=== PATIENT | female | born 1960 | race Caucasian/White ===

== ENCOUNTER 2016-08-26 10:11 | Inpatient (IN) | payer MEDICARE ==
[2016-08-26] MEDS ORDERED: MAG HYDROX/AL HYDROX/SIMETH 30 ML CUP PO PRN (13:19)
[2016-08-26] MEDS ORDERED: ZIPRASIDONE 20 MG VIAL IM PRN (13:19)
[2016-08-26 13:34] VITALS: BMI 24.9
[2016-08-26] MEDS ORDERED: LORazepam 2 MG/ML SYRINGE IM PRN (14:02)
--- NOTE | 2016-08-26 16:19 | P.CONS ---
History of Present Illness - Reason for Consult Consult date: 08/26/16 Medical management - History of Present Illness This is a 56-year-old female. She does not have a primary care physician. She has a past medical history of hypothyroidism, hyperlipidemia, gastroesophageal reflux disease, morbid obesity status post gastric bypass with possible 154 pounds, anal cancer, tobacco use and dependence, crack and alcohol use, bipolar disorder and anxiety. Patient states that she has been following with Dr. Hedrick for 10 years and she has had increasing problems with alcohol abuse and crack use. She states she was clean for 8 years but has been using for the past 6 months. She states she starts drinking alcohol straight vodka until she is "annihilated" and this triggers her drug use and she uses crack cocaine. This usually happens 1-2 times per week. She states she hadn't a plan with Dr. Hedrick to come into [facility] unit for help but she ended up starting to drink and using drugs and ended up attempting suicide by taking 30 Seroquel. Her father came to the home to pick her up in the morning to take her to [facility] mental health unit as scheduled but found her unresponsive and ended up calling 911 and patient was taken to a nearby hospital where she was stabilized and then directly transferred to the mental health unit. Review of Systems All systems: negative Constitutional: Denies chills, Denies fever Eyes: denies blurred vision, denies pain Ears, nose, mouth and throat: Denies headache, Denies sore throat Cardiovascular: Denies chest pain, Denies shortness of breath Respiratory: Denies cough Gastrointestinal: Denies abdominal pain, Denies diarrhea, Denies nausea, Denies vomiting Genitourinary: Denies dysuria, Denies hematuria Musculoskeletal: Denies myalgias Integumentary: Denies pruritus, Denies rash Neurological: Denies numbness, Denies weakness Psychiatric: Reports depression, Reports hopelessness, Reports suicidal ideation , Denies anxiety Endocrine: Denies fatigue, Denies weight change Past Medical History Past Medical History: Cancer, GERD/Reflux, Hyperlipidemia, Thyroid Disorder Additional Past Medical History / Comment(s): Anal CA, GI bypass 2014 with weight loss of 154 pounds History of Any Multi-Drug Resistant Organisms: None Reported Additional Past Surgical History / Comment(s): Gastric bypass in 2015, anal cancer surgery, hysterectomy Past Anesthesia/Blood Transfusion Reactions: No Reported Reaction Past Psychological History: Anxiety, Bipolar Smoking Status: Current every day smoker Past Alcohol Use History: Abuse Additional Past Alcohol Use History / Comment(s): Patient is a smoker of half a pack per day for 40 years. She drinks alcohol 1-2 times per week until drunk. She also uses crack cocaine 1-2 times per week for the past 6 months and previously was clean for 8 years. She does not have any children. Past Drug Use History: Cocaine - Past Family History Father Additional Family Medical History / Comment(s): Father is alive at age 83 with no major medical problems. Mother Additional Family Medical History / Comment(s): Mother at age 80 from brain cancer. Brother(s) Additional Family Medical History / Comment(s): Patient has 3 siblings. One brother from Hailey Gehrig's disease and to her life with no major medical problems. Medications and Allergies Home Medications Medication Instructions Recorded Confirmed Type Atorvastatin Calcium [Lipitor] 10 mg PO HS 08/26/16 08/26/16 History Divalproex ER [Depakote ER] 1,500 mg PO HS 08/26/16 08/26/16 History Levothyroxine Sodium [Synthroid] 50 mcg PO DAILY 08/26/16 08/26/16 History Omeprazole 20 mg PO DAILY 08/26/16 08/26/16 History QUEtiapine [SEROquel] 50 mg PO HS 08/26/16 08/26/16 History Venlafaxine HCl ER [Effexor Xr] 37.5 mg PO QAM 08/26/16 08/26/16 History Venlafaxine HCl ER [Effexor Xr] 75 mg PO QAM 08/26/16 08/26/16 History lamoTRIgine [LaMICtal] 25 mg PO BID 08/26/16 08/26/16 History Allergies Allergy/AdvReac Type Severity Reaction Status Date / Time No Known Allergies Allergy Unverified 08/26/16 12:40 Physical Exam Vitals: Vital Signs Temp Pulse Resp BP 08/26/16 13:24 97.7 F 67 16 110/74 Intake and Output 08/26/16 08/26/16 08/26/16 06:59 14:59 22:59 Other: Weight 74.38 kg Patient Weight 08/27/16 06:59 Weight 74.38 kg Gen: This is a 56 rolled female. She is cooperative and appears to be in no acute distress. HEENT: Head is atraumatic, normocephalic. Pupils equal, round. Sclerae is anicteric. NECK: Supple. No JVD. No lymphadenopathy. No thyromegaly. LUNGS: Clear to auscultation. No wheezes or rhonchi. No intercostal retractions. HEART: Regular rate and rhythm. No murmur. ABDOMEN: Soft. Bowel sounds are present. No masses. No tenderness. EXTREMITIES: No pedal edema. No calf tenderness. NEUROLOGICAL: Patient is awake, alert and oriented x3. Cranial nerves 2 through 12 are grossly intact. Assessment and Plan Plan: 1. Depression with suicide attempt. Patient admitted to the mental health unit. Continue current plan of care. 2. Tobacco use and dependence. Continue nicotine patch. 3. Crack and alcohol abuse. Continue as in #1. 4. Hypothyroidism. Continue Synthroid. 5. Gastroesophageal reflux disease. Continue omeprazole or equivalent. 6. Hyperlipidemia. Continue Lipitor. 7. History of morbid obesity status post gastric bypass with loss 154 pounds. 8. Anal cancer, patient to continue follow-up as previously determined. Impression and plan of care have been directed as dictated by the signing physician. Kathia Lyons nurse practitioner acting as scribe for signing physician. Time with Patient: Greater than 30
[2016-08-26] MEDS: NICOTINE 14MG/24HR PATCH TRANSDERM SCH (16:43)
[2016-08-26] MEDS: ATORVASTATIN 10 MG TAB PO SCH (20:56)
[2016-08-26] MEDS: QUEtiapine 50 MG TAB PO SCH (20:56)
[2016-08-26] MEDS: lamoTRIgine 25 MG TAB PO SCH (20:56)
[2016-08-26] MEDS: DIVALPROEX ER 500 MG TAB.ER.24H PO SCH (20:56)
[2016-08-27] MEDS: LEVOTHYROXINE 50 MCG TAB PO SCH (05:58)
[2016-08-27] MEDS: NICOTINE 14MG/24HR PATCH TRANSDERM SCH (09:34)
[2016-08-27] MEDS: VENLAFAXINE HCL ER 37.5 MG CAP PO SCH (09:34)
[2016-08-27] MEDS: lamoTRIgine 25 MG TAB PO SCH ×2 (09:35→20:26)
[2016-08-27] MEDS: PANTOPRAZOLE 40 MG TABLET PO SCH (09:35)
[2016-08-27] MEDS: VENLAFAXINE HCL ER 75 MG CAP PO SCH (09:35)
[2016-08-27] MEDS: MAGNESIUM HYDROXIDE 2,400 MG/10 ML CUP PO PRN (09:39)
--- NOTE | 2016-08-27 17:28 | P.HP ---
Psychiatric H&P - . H&P Date: 08/27/16 History & Physical: IDENTIFYING DATA: Ms. Gar is a 56-year-old female transferred from [facility] where she was treated for intentional overdose.. HISTORY OF PRESENT ILLNESS: She presented to [facility] on 08/23/2016 after overdosing on 500 mg of Seroquel, alcohol and cocaine on the evening of the . She described becoming more and more depressed, hopeless, helpless and worthless since she relapsed to alcohol cocaine "6-9 months ago". She was scheduled to be admitted to this unit on 08/23/2016. Her father arrived at her home that morning to take her to the hospital. He found her lying across her bed , groggy with a suicide note and empty pill bottles next her bed. The suicide note read "Sara cervantes Chris: My time is up - going to be with mom. Love you all very much but my time here is up!" She was drowsy on presentation to the ER but able to maintain her airway. [facility] overdose and transferred involuntarily to this facility when medically stable. She stated that given the opportunity she will attempt to kill herself again. She is disappointed with herself and feels as though she is disappointed her family and friends. She sees no hope for herself and no reason to keep living. Several times interview she stated that she "just wants to ." She is disappointed with herself for having relapsed to alcohol and cocaine. "I am a very intelligent woman .... I worked in [employer] making over $100,000 a year. 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 ... Look at me now." She described persistent feelings of hopelessness and helplessness. On the Barroso Depression Inventory her total score was 38 consistent with severe symptoms of depression. She describes sadness, pessimism, loss of pleasure, guilty feelings, punishment feelings, self dislike, self criticalness, suicidal thoughts or wishes, crying, agitation, loss of interest, indecisiveness, worthlessness, loss of energy, irritability, changes in appetite (my appetite is somewhat less than usual), concentration difficulty, tiredness or fatigue and loss of interest in sex. On the "Suicidal Thoughts or Wishes" question she selected the option "I would kill myself if I had chance." We talked about her alcohol and cocaine use. She stated she was abstinent for "several years". She believes relapse began when she started to have a "drink of wine now and then." She described a pattern where she would drink vodka once or twice per week. She will usually drink 1 glass of vodka and seek out crack cocaine. She would smoke cocaine for the day and sometimes into the following morning. After the binge she would feel remorseful, worthlessness and disappointed. The pattern continued over several months and she began to have increasing feeling of worthless and more persistent thoughts of suicide. PAST PSYCHIATRIC HISTORY: She has a history of a bipolar 2 disorder, alcohol use disorder and cocaine use disorder. He is had several psychiatric hospitalization; the last was in 2009 to this unit when she presented with delirium due to overdose of prescription psychotropic medications. Her dischare diagnoses include bipolar 1 disorder most recent manic with psychosis, delirium resolve most likely secondary to unintentional medication misuse. Her discharge medications included Abilify 10 mg daily lithium carbonate 600 mg in the morning and 10 mg at bedtime and Ambien 10 mg at bedtime. She received outpatient mental health treatment through [facility] outpatient mental health services; Dr. Hedrick was her psychiatrist. She last met with Dr. Hedrick in May 2016. PAST MEDICAL HISTORY: She has history of anal cancer, GERD, hyperlipidemia and thyroid disease. She had with GI bypass in 2014 with a report of a thought weight loss of 154 pounds.. ALLERGIES: NO KNOWN DRUG ALLERGIES SUBSTANCE USE HISTORY: She has history of alcohol and cocaine use disorders. She was abstinent "for several years" prior to this relapse. She attributed her abstinence to attendance to Alcoholics Anonymous and her ongoing mental health treatment. She has not participated in rehabilitation program. She is currently not attending Alcoholics Anonymous or Narcotics Anonymous. FAMILY PSYCHIATRIC/SUBSTANCE USE HISTORY: She alleged that most her family had a history of substance use problems. LEGAL HISTORY: She denied history of legal problems. SOCIAL HISTORY: She is and has no children. She lives alone in her own home. 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 She took medical leave from work in 2005 and forced into medical assisted in 2009. She is currently unemployed and receives social screening disability in addition to her pension. MENTAL STATUS EXAM: She presented as a disheveled appearing 56-year-old female who was emotionally labile and tearful during the interview. She maintained eye contact and attended to interview. She had no distinguishing features or prominent physical abnormalities. She had emotionally labile facial expression and cried intermittently during interview. She was alert and oriented to person, place and time. She was restless but did not have abnormal involuntary movements. Her speech was rapid with normal volume. She did not demonstrate pressured speech. There is no articulation difficulties. Her affect was depressed, anxious and intense. She described suicidal ideations and wishes. She denied a specific plan or intent but repeated that given the opportunity she will attempt suicide again. She expressed depressive cognitions including hopelessness, helplessness and worthlessness. She ruminated about past failures, her relapse to substance use , her disappointments, her depression and suicidal thoughts. She did not express phobias, ideas reference or paranoid ideation. Her thinking was abstract and associations were coherent and logical. She did not demonstrate clang associations, perseverations, neologisms or blocking. She denied hallucinations and did not appear to be responding to internal stimuli. Global impression of intellect is average to above. She is aware of her illness and need for mental health treatment. STRENGTHS: Stable housing, stable income, family support WEAKNESSES: alcohol and cocaine use disorder, lack of engagement in substance abuse recovery, no recent outpatient mental health treatment. IMPRESSION: She is a 56-year-old female transferred from [facility] following an intentional overdose with prescription medication, alcohol and cocaine. She described worsening depression and suicidal ideation since her relapse to alcohol and cocaine. She described ongoing suicidal thoughts and repeatedly stated that given the opportunity she would attempt suicide again. However, she denied a specific plan. She should be treated on an inpatient basis with a combination of sick pharmacology and multimodal therapy. PRINCIPLE DIAGNOSIS: Bipolar disorder most recent episode depressed without psychotic features, alcohol use disorder, cocaine use disorder, status post suicide attempt by overdose of alcohol and prescription medications RECOMMENDATION: Continue inpatient psychiatric hospitalization due to continued depression and suicidal ideation. Suicide precautions with 15 minute checks. If she displays increased agitation or parasuicidal behavio, place her on one-to -one. Continue outpatient medications including Depakote ER 1500 mg at bedtime , Lamictal 25 mg twice a day, Synthroid 50 g daily, Seroquel 50 mg at bedtime and Effexor XR 112.5 mg daily. Monitor alcohol withdrawal using the CIWA protocol. Lorazepam 1 mg by mouth/IM every 8 hours when necessary for anxiety and/or alcohol withdrawal. Geodon 20 mg IM by mouth twice a day when necessary for agitation acute psychosis. Continue Lipitor 10 mg at bedtime. research worker encyclopedia obtained collateral information from family. Encourage participation in therapeutic groups and activities. Evaluate clinical status and response to treatment on a daily basis. Allergies Allergy/AdvReac Type Severity Reaction Status Date / Time No Known Allergies Allergy Unverified 08/26/16 12:40 Vital Signs Temp 97.9 F 08/27/16 06:45 Pulse 55 L 08/27/16 06:45 Resp 16 08/27/16 06:45 BP 125/59 08/27/16 06:45 Pulse Ox Intake & Output 08/26/16 08/27/16 08/27/16 18:59 06:59 18:59 Weight 74.38 kg 08/27/16 09:07 08/27/16 17:21
[2016-08-27] MEDS: ACETAMINOPHEN TAB 325 MG TAB PO PRN (17:56)
[2016-08-27] MEDS: DIVALPROEX ER 500 MG TAB.ER.24H PO SCH (20:26)
[2016-08-27] MEDS: QUEtiapine 50 MG TAB PO SCH (20:27)
[2016-08-27] MEDS: ATORVASTATIN 10 MG TAB PO SCH (21:24)
[2016-08-28] MEDS: LEVOTHYROXINE 50 MCG TAB PO SCH (06:28)
[2016-08-28] MEDS: PANTOPRAZOLE 40 MG TABLET PO SCH (09:26)
[2016-08-28] MEDS: VENLAFAXINE HCL ER 37.5 MG CAP PO SCH (09:26)
[2016-08-28] MEDS: VENLAFAXINE HCL ER 75 MG CAP PO SCH (09:26)
[2016-08-28] MEDS: lamoTRIgine 25 MG TAB PO SCH ×2 (09:27→21:55)
[2016-08-28] MEDS: NICOTINE 14MG/24HR PATCH TRANSDERM SCH (09:28)
[2016-08-28] MEDS: ACETAMINOPHEN TAB 325 MG TAB PO PRN ×2 (14:55→21:55)
--- NOTE | 2016-08-28 14:58 | P.PN ---
Progress Note - Text SUBJECTIVE: I reviewed the medical record and interviewed Ms. Gar. She reported that she is feeling better than yesterday; "I am less desperate." She continues have thoughts of suicide but denied intent and plan. She remains fearful of discharge and believes that if she were to be discharged would attempt suicide again. She talked about falling prior to admission and hitting her head. Since the fall she is complained of headaches. She has a contusion above her left eye. OBJECTIVE: She presented as a casually groomed 56-year-old woman who was pleasant on approach. She made eye contact and attended to the interview. She had a blunted but bright facial expression. She showed slight increased psychomotor activity but no abnormal involuntary movements. Her speech was spontaneous with increased rate but normal rhythm and volume. Her affect was dysphoric. She cried continued suicidal ideation and wishes. She has depressive cognitions such as hopelessness, helplessness and worthlessness. She denied ideas of reference or paranoid ideation. Her thinking was abstract and associations are coherent and logical. She denied hallucinations and did not appear to be responding to internal stimuli. CIWA scores have range from 0-11 over the last 24 hours ASSESSMENT: Fall prior to admission with persistent headaches. She is having minimal symptoms of alcohol withdrawal. Continue symptoms depression and suicidal ideation without intent or plan. PLAN: Continue inpatient psychiatric hospitalization due to depression and suicidal ideation. Continue suicide precautions with 15 minute checks. Continue Depakote 150 0mg at bedtime, Lamictal 25 mg twice a day, Synthroid 50 g daily, Seroquel 50 mg at bedtime and Effexor 112.5 mg daily. Discontinue CIWA. Continue lorazepam 1 mg by mouth/IM every 8 hours when necessary for anxiety or acute agitation. Geodon 20 mg IM by mouth twice a day when necessary for agitation or acute psychosis. Continue Lipitor 10 mg at bedtime. Obtain computed tomography scan of the head. Encourage participation in therapeutic groups and activities. Evaluate clinical status response to treatment daily basis.
--- NOTE | 2016-08-28 15:40 | CT ---
EXAMINATION TYPE: CT brain wo con DATE OF EXAM: 08/28/2016 3:19 PM COMPARISON: NONE HISTORY: dizziness, blurred vision, fall CT DLP: 1072.3 mGycm Automated exposure control for dose reduction was used. FINDINGS: Ventricles and sulci appear normal. There is no mass effect nor midline shift. There is no sign of in tracranial hemorrhage. The calvarium appears intact. There is left frontal scalp soft tissue swelling . There is mucosal thickening with fluid level in the left maxillary sinus. There is mild mucosal thick ening in the sphenoid and right maxillary sinus. IMPRESSION: Left frontal small scalp hematoma. No acute intracranial abnormality. Mild sinusitis. No fracture see n.
[2016-08-28] MEDS: DIVALPROEX ER 500 MG TAB.ER.24H PO SCH (21:55)
[2016-08-28] MEDS: ATORVASTATIN 10 MG TAB PO SCH (21:55)
[2016-08-28] MEDS: QUEtiapine 50 MG TAB PO SCH (21:55)
[2016-08-29] MEDS: LEVOTHYROXINE 50 MCG TAB PO SCH (05:53)
[2016-08-29] MEDS: lamoTRIgine 25 MG TAB PO SCH ×2 (09:36→21:10)
[2016-08-29] MEDS: VENLAFAXINE HCL ER 37.5 MG CAP PO SCH (09:36)
[2016-08-29] MEDS: PANTOPRAZOLE 40 MG TABLET PO SCH (09:36)
[2016-08-29] MEDS: NICOTINE 14MG/24HR PATCH TRANSDERM SCH (09:36)
[2016-08-29] MEDS: VENLAFAXINE HCL ER 75 MG CAP PO SCH (09:37)
[2016-08-29] MEDS: MAGNESIUM HYDROXIDE 2,400 MG/10 ML CUP PO PRN (12:11)
[2016-08-29] MEDS ORDERED: OLANZapine 2.5 MG TAB PO STA (13:51)
--- NOTE | 2016-08-29 14:23 | P.PN ---
Progress Note - Text SUBJECTIVE: I reviewed the medical record, discussed her treatment and treatment plan during team meeting and interviewed Ms. Gar. She complained of feeling manic. He stated that she has restless, edgy and feels more irritable. "I'm talking a mile a minute." She requested something "temporary" . This level of her agitation and irritability. We discussed treatment options. She declined a change in dose of her current medications including Effexor (I recommended to decrease the dose temporarily), Depakote, Lamictal and Seroquel. She agreed to a trial of olanzapine 2.5 mg. I explained the results of the computed tomography scan of brain. OBJECTIVE: She presented as a casually groomed 56-year-old woman who was pleasant on approach. She made eye contact and attended to the interview. She had a bright facial expression. She had a hand tremor and increased psychomotor activity but no abnormal involuntary movements. Her speech was spontaneous with increased rate but normal rhythm and volume. Her affect was dysphoric. She denied suicidal ideation and wishes. She did not expressed depressive cognitions such as hopelessness, helplessness and worthlessness. She denied ideas of reference or paranoid ideation. Her thinking was abstract and associations are coherent and logical. She denied hallucinations and did not appear to be responding to internal stimuli. CIWA scores have range from 1-11 over the last 24 hours Computed tomography scan of the brain shows only a contusion on the forehead. ASSESSMENT: She is having minimal symptoms of alcohol withdrawal. She is describing signs and symptoms of hypomania PLAN: Continue suicide precautions with 15 minute checks. Continue Depakote 150 0mg at bedtime, Lamictal 25 mg twice a day, Synthroid 50 g daily, Seroquel 50 mg at bedtime and Effexor 112.5 mg daily. Zyprexa 2.5 mg by mouth for hypomania. Check serum valproic acid level. If hypomanic symptoms persist taper Effexor. Continue lorazepam 1 mg by mouth/IM every 8 hours when necessary for anxiety or acute agitation. Geodon 20 mg IM by mouth twice a day when necessary for agitation or acute psychosis. Continue Lipitor 10 mg at bedtime. Obtain computed tomography scan of the head. Encourage participation in therapeutic groups and activities. Evaluate clinical status response to treatment daily basis.
[2016-08-29] MEDS: DIVALPROEX ER 500 MG TAB.ER.24H PO SCH (21:10)
[2016-08-29] MEDS: ATORVASTATIN 10 MG TAB PO SCH (21:10)
[2016-08-29] MEDS: QUEtiapine 50 MG TAB PO SCH (21:11)
[2016-08-30] MEDS: ACETAMINOPHEN TAB 325 MG TAB PO PRN (02:42)
[2016-08-30] MEDS: LEVOTHYROXINE 50 MCG TAB PO SCH (05:46)
[2016-08-30] MEDS: NICOTINE 14MG/24HR PATCH TRANSDERM SCH (09:45)
[2016-08-30] MEDS: VENLAFAXINE HCL ER 75 MG CAP PO SCH (09:46)
[2016-08-30] MEDS: VENLAFAXINE HCL ER 37.5 MG CAP PO SCH (09:46)
[2016-08-30] MEDS: lamoTRIgine 25 MG TAB PO SCH ×2 (09:46→21:14)
[2016-08-30] MEDS: MAGNESIUM HYDROXIDE 2,400 MG/10 ML CUP PO PRN (09:47)
[2016-08-30] MEDS: PANTOPRAZOLE 40 MG TABLET PO SCH (09:47)
[2016-08-30] MEDS: IBUPROFEN 400 MG TAB PO PRN ×2 (12:50→21:14)
[2016-08-30] MEDS: BENZOCAIN/BENZALKONM ORAL GEL 12 GM TUBE MM PRN ×2 (13:05→21:18)
--- NOTE | 2016-08-30 14:03 | P.PN ---
Progress Note - Text SUBJECTIVE: I reviewed the medical record, discussed her treatment and treatment plan during team meeting and interviewed Ms. Gar. She stated that she feels "less manic" today since she took the single dose of olanzapine. She complained about "family problems". Apparently her family are wishing her enter a substance rehabilitation program. 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 She asked for my opinion and I recommended residential rehabilitation. She again declined my recommendation to decrease the dose of venlafaxine. OBJECTIVE: She presented as a casually groomed 56-year-old woman who was pleasant on approach. She made eye contact and attended to the interview. She had a bright facial expression. She had no abnormality of psychomotor activity but no abnormal involuntary movements. Her speech was spontaneous with increased rate but normal rhythm and volume. She did not demonstrate flight of ideas or pressured speech. Her affect was blunted but bright. She denied suicidal ideation and wishes. She did not expressed depressive cognitions such as hopelessness, helplessness and worthlessness. She denied ideas of reference or paranoid ideation. Her thinking was abstract and associations are coherent and logical. She denied hallucinations and did not appear to be responding to internal stimuli. Her serum valproic acid level was 75.5 ASSESSMENT: She has no signs or symptoms of alcohol withdrawal. She is less agitated and restless to yesterday. PLAN: Continue suicide precautions with 15 minute checks. Continue Depakote 150 0mg at bedtime, Lamictal 25 mg twice a day, Synthroid 50 g daily, Seroquel 50 mg at bedtime and Effexor 112.5 mg daily. Zyprexa 2.5 mg by mouth for hypomania. Continue lorazepam 1 mg by mouth/IM every 8 hours when necessary for anxiety or acute agitation. Geodon 20 mg IM by mouth twice a day when necessary for agitation or acute psychosis. Continue Lipitor 10 mg at bedtime. Encourage admission to a residential substance abuse treatment program. Encourage participation in therapeutic groups and activities. Evaluate clinical status response to treatment daily basis.
[2016-08-30] MEDS: ATORVASTATIN 10 MG TAB PO SCH (21:13)
[2016-08-30] MEDS: DIVALPROEX ER 500 MG TAB.ER.24H PO SCH (21:13)
[2016-08-30] MEDS: QUEtiapine 50 MG TAB PO SCH (21:14)
[2016-08-31] MEDS: LEVOTHYROXINE 50 MCG TAB PO SCH (06:40)
[2016-08-31] MEDS: VENLAFAXINE HCL ER 75 MG CAP PO SCH (10:23)
[2016-08-31] MEDS: lamoTRIgine 25 MG TAB PO SCH ×2 (10:24→20:58)
[2016-08-31] MEDS: PANTOPRAZOLE 40 MG TABLET PO SCH (10:24)
[2016-08-31] MEDS: NICOTINE 14MG/24HR PATCH TRANSDERM SCH (10:24)
[2016-08-31] MEDS: VENLAFAXINE HCL ER 37.5 MG CAP PO SCH (10:24)
[2016-08-31] MEDS: IBUPROFEN 400 MG TAB PO PRN (11:33)
[2016-08-31] MEDS: BENZOCAIN/BENZALKONM ORAL GEL 12 GM TUBE MM PRN ×2 (11:33→16:15)
[2016-08-31] MEDS: MAGNESIUM HYDROXIDE 2,400 MG/10 ML CUP PO PRN (12:28)
--- NOTE | 2016-08-31 15:45 | P.PN ---
Progress Note - Text SUBJECTIVE: I reviewed the medical record, discussed her treatment and treatment plan during team meeting and interviewed Ms. Gar. She reports that he is feeling better except for her toothache. "I'm starting to feel more hopeful." She denied current suicidal thoughts or wishes. She denied feeling depressed, restless, anxious or irritable. She remains ambivalent about residential substance abuse treatment. She is compiling a list of "pros and cons" and wishes to suspended judgment until she speaks with social organization professor, her outpatient psychiatrist and her sister. She emphasized that she wished to remain in the hospital until she could talk with her outpatient psychiatrist. OBJECTIVE: She presented as a casually groomed 56-year-old woman who was pleasant on approach. She made eye contact and attended to the interview. She had a blunted facial expression. She had no abnormality of psychomotor activity and no abnormal involuntary movements. Her speech was spontaneous with increased rate but normal rhythm and volume. She did not demonstrate flight of ideas or pressured speech. Her affect was blunted but bright. She denied suicidal ideation and wishes. She did not expressed depressive cognitions such as hopelessness, helplessness and worthlessness. She denied ideas of reference or paranoid ideation. Her thinking was abstract and associations are coherent and logical. She denied hallucinations and did not appear to be responding to internal stimuli. ASSESSMENT: She has a history of cocaine and alcohol use disorder and is ambivalent about substance abuse rehabilitation. She has minimal symptoms of depression and demonstrates no signs of katja or hypomania. PLAN: Continue suicide precautions with 15 minute checks. Continue Depakote 150 0mg at bedtime, Lamictal 25 mg twice a day, Synthroid 50 g daily, Seroquel 50 mg at bedtime and Effexor 112.5 mg daily. Zyprexa 2.5 mg by mouth for hypomania. Continue lorazepam 1 mg by mouth/IM every 8 hours when necessary for anxiety or acute agitation. Geodon 20 mg IM by mouth twice a day when necessary for agitation or acute psychosis. Continue Lipitor 10 mg at bedtime. Encourage admission to a residential substance abuse treatment program. Encourage participation in therapeutic groups and activities. Evaluate clinical status response to treatment daily basis.
[2016-08-31] MEDS: QUEtiapine 50 MG TAB PO SCH (20:58)
[2016-08-31] MEDS: DIVALPROEX ER 500 MG TAB.ER.24H PO SCH (20:58)
[2016-08-31] MEDS: ATORVASTATIN 10 MG TAB PO SCH (20:58)
[2016-09-01] MEDS: LEVOTHYROXINE 50 MCG TAB PO SCH (05:59)
[2016-09-01] MEDS: IBUPROFEN 400 MG TAB PO PRN ×2 (06:01→15:54)
[2016-09-01] MEDS: MAGNESIUM HYDROXIDE 2,400 MG/10 ML CUP PO PRN (09:00)
[2016-09-01] MEDS: VENLAFAXINE HCL ER 75 MG CAP PO SCH (09:00)
[2016-09-01] MEDS: NICOTINE 14MG/24HR PATCH TRANSDERM SCH (09:00)
[2016-09-01] MEDS: lamoTRIgine 25 MG TAB PO SCH ×2 (09:00→21:23)
[2016-09-01] MEDS: PANTOPRAZOLE 40 MG TABLET PO SCH (09:00)
[2016-09-01] MEDS: VENLAFAXINE HCL ER 37.5 MG CAP PO SCH (09:04)
--- NOTE | 2016-09-01 14:46 | P.PN ---
Progress Note - Text SUBJECTIVE: I reviewed the medical record, discussed her treatment and treatment plan during team meeting and interviewed Ms. Gar. She stated that she is "feeling well." She denied current suicidal thoughts or wishes. She denied feeling depressed, restless, anxious or irritable. She decided against residential rehabilitation. She developed a list of "pros and cons" and concluded that the "cons" outweighed the "pros". 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 She believes that reengage in with Alcoholics Anonymous and starting individual therapy along with psychiatric care would be adequate to address her alcohol and cocaine use problems. She notes that her plan is to remain in the hospital until Monday when she could talk with Dr. Hedrick. She has "much to talk about" and will need to remain in the hospital until next Monday to cover all the topic she wishes to discuss. I explained that the alteration of her hospitalization will depend on authorization by her insurance company. She understands that she may not be authorized for continued stay showed the weekend and into next week. She does not have a follow-up appointment with Dr. Hedrick. She remains opposed to any change in her psychotropic medication schedule. OBJECTIVE: She presented as a casually groomed 56-year-old woman who was pleasant on approach. She made eye contact and attended to the interview. She had a blunted facial expression. She had no abnormality of psychomotor activity and no abnormal involuntary movements. Her speech was spontaneous with increased rate but normal rhythm and volume. She did not demonstrate flight of ideas or pressured speech. Her affect was blunted but bright. She denied suicidal ideation and wishes. She did not expressed depressive cognitions such as hopelessness, helplessness and worthlessness. She denied ideas of reference or paranoid ideation. Her thinking was abstract and associations are coherent and logical. She denied hallucinations and did not appear to be responding to internal stimuli. ASSESSMENT: She does not understand the severity of her drug alcohol use and the need for outpatient treatment. She appears slightly hypomanic but is no evidence of psychosis or thoughts of self-harm. PLAN: Continue suicide precautions with 15 minute checks. Continue Depakote 150 0mg at bedtime, Lamictal 25 mg twice a day, Synthroid 50 g daily, Seroquel 50 mg at bedtime and Effexor 112.5 mg daily. Zyprexa 2.5 mg by mouth for hypomania. Continue lorazepam 1 mg by mouth/IM every 8 hours when necessary for anxiety or acute agitation. Geodon 20 mg IM by mouth twice a day when necessary for agitation or acute psychosis. Continue Lipitor 10 mg at bedtime. Continue to encourage a residential substance abuse treatment program. Encourage participation in therapeutic groups and activities. Evaluate clinical status response to treatment daily basis.
[2016-09-01] MEDS: ATORVASTATIN 10 MG TAB PO SCH (21:23)
[2016-09-01] MEDS: QUEtiapine 50 MG TAB PO SCH (21:23)
[2016-09-01] MEDS: DIVALPROEX ER 500 MG TAB.ER.24H PO SCH (21:23)
[2016-09-02] MEDS: LEVOTHYROXINE 50 MCG TAB PO SCH (06:00)
[2016-09-02] MEDS: lamoTRIgine 25 MG TAB PO SCH ×2 (09:28→21:16)
[2016-09-02] MEDS: NICOTINE 14MG/24HR PATCH TRANSDERM SCH (09:28)
[2016-09-02] MEDS: VENLAFAXINE HCL ER 37.5 MG CAP PO SCH (09:28)
[2016-09-02] MEDS: VENLAFAXINE HCL ER 75 MG CAP PO SCH (09:28)
[2016-09-02] MEDS: IBUPROFEN 400 MG TAB PO PRN ×2 (09:28→21:38)
[2016-09-02] MEDS: PANTOPRAZOLE 40 MG TABLET PO SCH (09:28)
[2016-09-02] MEDS: BENZOCAIN/BENZALKONM ORAL GEL 12 GM TUBE MM PRN (09:30)
[2016-09-02] MEDS: LORazepam 1 MG TAB PO PRN (14:55)
--- NOTE | 2016-09-02 16:02 | P.PN ---
Progress Note - Text SUBJECTIVE: I reviewed the medical record, discussed her treatment and treatment plan during team meeting and interviewed Ms. Gar. She stated that she is "safe" then ready to discharged. However during a conversation she began to cry uncontrollably. She talked about a family meeting where her sister allegedly told her that she "wants nothing to do with me. She is tired of my lying and my constant drug and alcohol use." She alleged her only support is her brother who is currently in [place]. Her family does not trust her with her prescription medications. Her father removed all the medications from her home concerned about an overdose. She asked for a 3 day supply of medications until she can meet with her outpatient psychiatrist next week. She indirectly asked if it were possible to overdose on her medications if he were to use alcohol and cocaine: "My sister wanted no active I could overdose with a 3 day supply my medications and drank alcohol use cocaine. " I spoke with the nursing home social worker about the family meeting. The nursing home social worker stated that the sister was very brusque almost rude and critical of Mrs. Gar. OBJECTIVE: She presented as a casually groomed 56-year-old woman who was pleasant on approach. She made eye contact and attended to the interview. She had a blunted facial expression. She cried during the interview. She had no abnormality of psychomotor activity and no abnormal involuntary movements. Her speech was spontaneous with increased rate but normal rhythm and volume. She did not demonstrate flight of ideas or pressured speech. Her affect was blunted but bright. She denied suicidal ideation and wishes. She did not expressed depressive cognitions such as hopelessness , helplessness and worthlessness. She denied ideas of reference or paranoid ideation. Her thinking was abstract and associations are coherent and logical. She denied hallucinations and did not appear to be responding to internal stimuli. ASSESSMENT: We had planned on discharging today but concerned about her suicide risk. Although she denies suicide thoughts, wishes or plans she believes she has no family support and asked about the possibility of suicide would small amount of medication combined with drugs and alcohol. His brother is to return from [place] next week and we can coordinate discharge with his support. PLAN: Postpone discharge due to concerns about suicide risk. Continue suicide precautions with 15 minute checks. Continue Depakote 150 0mg at bedtime, Lamictal 25 mg twice a day, Synthroid 50 g daily, Seroquel 50 mg at bedtime and Effexor 112.5 mg daily. Zyprexa 2.5 mg by mouth for hypomania. Continue lorazepam 1 mg by mouth/IM every 8 hours when necessary for anxiety or acute agitation. Geodon 20 mg IM by mouth twice a day when necessary for agitation or acute psychosis. Continue Lipitor 10 mg at bedtime. Continue to encourage a residential substance abuse treatment program. Encourage participation in therapeutic groups and activities. Evaluate clinical status response to treatment daily basis.
[2016-09-02] MEDS ORDERED: WATER FOR INJECTION, STERILE 10 ML IV ONE (19:16)
[2016-09-02] MEDS ORDERED: ZIPRASIDONE 20 MG VIAL IM ONE (19:16)
[2016-09-02] MEDS: ATORVASTATIN 10 MG TAB PO SCH (20:48)
[2016-09-02 20:50] VITALS: RESP 16
[2016-09-02] MEDS: QUEtiapine 50 MG TAB PO SCH (21:16)
[2016-09-02] MEDS: DIVALPROEX ER 500 MG TAB.ER.24H PO SCH (21:16)
[2016-09-03] MEDS: LEVOTHYROXINE 50 MCG TAB PO SCH (06:28)
[2016-09-03] MEDS: lamoTRIgine 25 MG TAB PO SCH ×2 (08:58→20:33)
[2016-09-03] MEDS: NICOTINE 14MG/24HR PATCH TRANSDERM SCH (08:58)
[2016-09-03] MEDS: PANTOPRAZOLE 40 MG TABLET PO SCH (08:58)
[2016-09-03] MEDS: VENLAFAXINE HCL ER 75 MG CAP PO SCH (08:59)
[2016-09-03] MEDS: VENLAFAXINE HCL ER 37.5 MG CAP PO SCH (08:59)
[2016-09-03] MEDS: LORazepam 1 MG TAB PO PRN (09:00)
[2016-09-03] MEDS: IBUPROFEN 400 MG TAB PO PRN ×2 (09:00→15:09)
[2016-09-03] MEDS: BENZOCAIN/BENZALKONM ORAL GEL 12 GM TUBE MM PRN ×3 (09:00→18:55)
[2016-09-03] MEDS: hydrOXYzine PAMOATE 25 MG CAP PO PRN (14:05)
[2016-09-03] MEDS ORDERED: IBUPROFEN 400 MG TAB PO ONE (16:00)
--- NOTE | 2016-09-03 18:55 | P.PN ---
Progress Note - Text Date of service: 09/03/2016 Chief complaint: "I have very bad toothache" Subjective: The patient has been seeing today as follow-up, chart reviewed, case discussed with the treatment team. Patient reported feeling down with low today, denies severe depression, denies feeling hopeless or suicidal. The patient endorses that she has has a discharge plan yesterday, but she gets very irritable with severe anxiety in context of poor communication during family meeting. Patient reports since yesterday she has been feeling more anxious and tense. Patient reports has fair sleep, and appetite. Patient reports severe pain for the last 2 days and she stated that the Motrin not helping. She requested to increase Motrin and the frequency of oragel. The patient denies any manic symptoms including sustained period of time with elevated or irritable mood, impulsive or irrational behavior, inflated self- esteem, or absence need to sleep due to increases goal-directed activities. The patient denies any auditory or visual hallucinations. Also the patient denies any paranoid ideation. Review of other systems: Patient denies any physical symptoms besides what has been mentioned above. No problems was presenting no chest pain reported today. Objective: Vitals has been reviewed. Mental status examination; Appearance: The patient appears stated age ,adequately groomed and dressed, no specific features. Gait/posture: Normal gait and posture, Normal arm was swinging: No abnormal movements. Attitude and behavior: fully engaged, cooperative, normal eye contact. Motor activity: No psychomotor agitation or retardation Speech: Normal rate, rhythm, not pressured Mood: Anxious Affect: Restricted Thought form: goal-directed, linear, coherent. Thought content: Non-delusional, denies suicidal thoughts, denies homicidal thoughts, denies intentions or plans. Perception: Denies any auditory or visual hallucinations Attention: No impairment. Patient was able to repeat serial 7. Orientation: Patient patient was fully oriented to time place person and situation. Insight: Patient has limited insight about his psychiatric disorder. Judgment: Patient has limited judgment about his psychiatric treatment. Assessment: Bipolar disorder, most recent episode depression. Other: Use disorder Plan: Continue current management. Vistaril 25 mg 4 times a day when necessary for anxiety. Motrin 800 mg by mouth 3 times a day when necessary for pain. Discharge planning isn't going.
[2016-09-03] MEDS: ATORVASTATIN 10 MG TAB PO SCH (20:32)
[2016-09-03] MEDS: DIVALPROEX ER 500 MG TAB.ER.24H PO SCH (20:32)
[2016-09-03] MEDS: QUEtiapine 50 MG TAB PO SCH (20:33)
[2016-09-04] MEDS: LEVOTHYROXINE 50 MCG TAB PO SCH (06:46)
[2016-09-04] MEDS: lamoTRIgine 25 MG TAB PO SCH ×2 (09:06→20:26)
[2016-09-04] MEDS: NICOTINE 14MG/24HR PATCH TRANSDERM SCH (09:06)
[2016-09-04] MEDS: PANTOPRAZOLE 40 MG TABLET PO SCH (09:06)
[2016-09-04] MEDS: VENLAFAXINE HCL ER 37.5 MG CAP PO SCH (09:06)
[2016-09-04] MEDS: LORazepam 1 MG TAB PO PRN (09:07)
[2016-09-04] MEDS: IBUPROFEN 800 MG TAB PO PRN ×2 (09:07→20:29)
[2016-09-04] MEDS: BENZOCAIN/BENZALKONM ORAL GEL 12 GM TUBE MM PRN ×2 (09:07→20:28)
[2016-09-04] MEDS: VENLAFAXINE HCL ER 75 MG CAP PO SCH (09:07)
[2016-09-04] MEDS: hydrOXYzine PAMOATE 25 MG CAP PO PRN ×2 (09:34→20:30)
--- NOTE | 2016-09-04 16:26 | P.PN ---
Progress Note - Text Date of service: 09/04/2016 Chief complaint: "I am feeling better today" Subjective: The patient has been seen today as follow-up, chart reviewed, case discussed with the treatment team. Patient minimized tooth pain today and reports Motrin did help. Patient expressed anxiety about her discharge and she might not have medications because she just filled her medications before admission and her family throw all her medications. Patient requested different times for the discharging physician hold insurance and authorize the medication. Patient denies feeling depressed, denies feeling hopeless, denies suicidal or homicidal thoughts intention or plan. Patient reports has fair sleep, appetite, and concentration The patient denies any manic symptoms including sustained period of time with elevated or irritable mood, impulsive or irrational behavior, inflated self- esteem, or absence need to sleep due to increases goal-directed activities. The patient denies any auditory or visual hallucinations. Also the patient denies any paranoid ideation. Review of other systems: Patient denies any physical symptoms besides what has been mentioned above. No breathing problems, no chest pain reported today. Objective: Vitals has been reviewed. Mental status examination; Appearance: The patient appears stated age ,adequately groomed and dressed, no specific features. Gait/posture: Normal gait and posture, Normal arm was swinging: No abnormal movements. Attitude and behavior: fully engaged, cooperative, normal eye contact. Motor activity: No psychomotor agitation or retardation Speech: Normal rate, rhythm, not pressured Mood: Anxious Affect: Restricted Thought form: goal-directed, linear, coherent. Thought content: Non-delusional, denies suicidal thoughts, denies homicidal thoughts, denies intentions or plans. Perception: Denies any auditory or visual hallucinations Attention: No impairment. Patient was able to repeat serial 7. Orientation: Patient patient was fully oriented to time place person and situation. Insight: Patient has limited insight about his psychiatric disorder. Judgment: Patient has limited judgment about his psychiatric treatment. Assessment: Bipolar disorder, most recent episode depression. Other: Use disorder Plan: Continue current management. Vistaril 25 mg 4 times a day when necessary for anxiety. Patient could continue Vistaril as a discharge medication. Discharging physician to authorize a refill of medication. Motrin 800 mg by mouth 3 times a day when necessary for pain. Discharge planning is ongoing.
[2016-09-04] MEDS: DIVALPROEX ER 500 MG TAB.ER.24H PO SCH (20:25)
[2016-09-04] MEDS: ATORVASTATIN 10 MG TAB PO SCH (20:26)
[2016-09-04] MEDS: QUEtiapine 50 MG TAB PO SCH (20:26)
[2016-09-05] MEDS: LEVOTHYROXINE 50 MCG TAB PO SCH (06:10)
[2016-09-05 07:36] VITALS: BP 94/51; PULSE 60; TEMP 97.4
[2016-09-05] MEDS: NICOTINE 14MG/24HR PATCH TRANSDERM SCH (09:19)
[2016-09-05] MEDS: PANTOPRAZOLE 40 MG TABLET PO SCH (09:20)
[2016-09-05] MEDS: hydrOXYzine PAMOATE 25 MG CAP PO PRN (09:20)
[2016-09-05] MEDS: lamoTRIgine 25 MG TAB PO SCH (09:20)
[2016-09-05] MEDS: VENLAFAXINE HCL ER 75 MG CAP PO SCH (09:20)
[2016-09-05] MEDS: VENLAFAXINE HCL ER 37.5 MG CAP PO SCH (09:20)
[2016-09-05] MEDS: IBUPROFEN 800 MG TAB PO PRN (09:21)
[2016-09-05] MEDS: BENZOCAIN/BENZALKONM ORAL GEL 12 GM TUBE MM PRN (09:21)
--- NOTE | 2016-09-05 15:19 | P.DS ---
Providers Date of admission: 08/26/16 11:40 Attending physician: Justin Donnelly MD Consults: 08/26/16 13:19 Consult Physician Routine Consulting Provider: Justin Bates Consult Reason/Comments: H & P and medical care Do you want consulting provider notified?: Already Contacted Primary care physician: Stated None - Discharge Diagnosis(es) (1) Bipolar disorder, most recent episode depressed Status: Chronic Priority: High (2) Alcohol use disorder, severe, dependence Status: Chronic Priority: High (3) Cocaine use disorder, severe, dependence Status: Chronic Priority: High (4) Suicide attempt by multiple drug overdose Status: Acute Priority: High Hospital Course: Ms. Gar is a 56-year-old female transferred from [facility] where she was treated for intentional overdose.. She presented to [facility] on 08/23/2016 after overdosing on 500 mg of Seroquel, alcohol and cocaine on the evening of the . She described becoming more and more depressed, hopeless, helpless and worthless since she relapsed to alcohol cocaine "6-9 months ago". She was scheduled to be admitted to this unit on 08/23/2016. Her father arrived at her home that morning to take her to the hospital. He found her lying across her bed, groggy with a suicide note and empty pill bottles next her bed. The suicide note read "helenSaar Jesse: My time is up - going to be with mom. Love you all very much but my time here is up!" She was drowsy on presentation to the ER but able to maintain her airway. She was admitted to [facility] for management of acute overdose and transferred involuntarily to this facility when medically stable. She stated that given the opportunity she will attempt to kill herself again. She is disappointed with herself and feels as though she is disappointed her family and friends. She sees no hope for herself and no reason to keep living. Several times interview she stated that she "just wants to ." She is disappointed with herself for having relapsed to alcohol and cocaine. "I am a very intelligent woman .... I worked in [employer] making over $100,000 a year. 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 ... Look at me now." She described persistent feelings of hopelessness and helplessness. On the Barroso Depression Inventory her total score was 38 consistent with severe symptoms of depression. She describes sadness, pessimism, loss of pleasure, guilty feelings, punishment feelings, self dislike, self criticalness, suicidal thoughts or wishes, crying, agitation, loss of interest, indecisiveness, worthlessness, loss of energy, irritability, changes in appetite (my appetite is somewhat less than usual), concentration difficulty, tiredness or fatigue and loss of interest in sex. On the "Suicidal Thoughts or Wishes" question she selected the option "I would kill myself if I had chance." We talked about her alcohol and cocaine use. She stated she was abstinent for "several years". She believes relapse began when she started to have a "drink of wine now and then." She described a pattern where she would drink vodka once or twice per week. She will usually drink 1 glass of vodka and seek out crack cocaine. She would smoke cocaine for the day and sometimes into the following morning. After the binge she would feel remorseful, worthlessness and disappointed. The pattern continued over several months and she began to have increasing feeling of worthless and more persistent thoughts of suicide. She has a history of a bipolar 2 disorder, alcohol use disorder and cocaine use disorder. He is had several psychiatric hospitalization; the last was in 2009 to this unit when she presented with delirium due to overdose of prescription psychotropic medications. Her dischare diagnoses include bipolar 1 disorder most recent manic with psychosis, delirium resolve most likely secondary to unintentional medication misuse. Her discharge medications included Abilify 10 mg daily lithium carbonate 600 mg in the morning and 10 mg at bedtime and Ambien 10 mg at bedtime. She received outpatient mental health treatment through [facility] outpatient mental health services; Dr. Hedrick was her psychiatrist. She last met with Dr. Hedrick in May 2016. We admitted her to the psychiatric unit under the care of this sheet writer. We provided a biopsychosocial assessment. The dairy consultant completed the initial physical exam and medical history. The dairy consultant diagnosed tobacco use, cocaine and alcohol abuse, hypothyroidism, GERD, hyperlipidemia, history of morbid obesity and status post gastric bypass and history of anal cancer. We continued her outpatient medications including Depakote 1500 mg at bedtime, Lamictal 25 mg twice a day, Effexor XR 112.5 mg daily and Seroquel 50 mg at bedtime. She was quite rigid about her psychotropic medications and refused to allow us to make modifications or changes. We treated her anxiety complaints with when necessary lorazepam and Vistaril. She participated in therapeutic groups and activities. She posed no management problems to and demonstrated no episodes of behavioral dyscontrol. The public health social worker had close contact with her family. We encouraged her to consider a residential substance abuse program and her family encouraged the same. 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 However, she agreed to outpatient substance abuse treatment and to reengage with Alcoholics Anonymous. Her family is quite concerned about her chronic use of alcohol and cocaine. They complaint that she has been minimizing the severity of her use to avoid treatment. At time of discharge she denied thoughts of or suicide. She planned to live with her boyfriend temporarily until she is able to find her own apartment. She has a appointment with her outpatient psychiatrist and expressive continued desire to engage in outpatient therapy and outpatient substance abuse treatment. Patient Condition at Discharge: Stable Plan - Discharge Summary New Discharge Prescriptions: Atorvastatin Calcium [Lipitor] 10 mg PO HS 7 Days Divalproex ER [Depakote ER] 1,500 mg PO HS 7 Days Levothyroxine Sodium [Synthroid] 50 mcg PO DAILY 7 Days Nicotine 14Mg/24Hr Patch [Habitrol] 1 patch TRANSDERM DAILY 14 Days Omeprazole 20 mg PO DAILY 7 Days QUEtiapine [SEROquel] 50 mg PO HS 7 Days Venlafaxine HCl ER [Effexor XR] 37.5 mg PO QAM 7 Days Venlafaxine HCl ER [Effexor XR] 75 mg PO QAM 7 Days hydrOXYzine PAMOATE [Vistaril] 25 mg PO Q6HR PRN 7 Days PRN Reason: Anxiety lamoTRIgine [LaMICtal] 25 mg PO BID 7 Days Discharge Medication List Atorvastatin Calcium [Lipitor] 10 mg PO HS 7 Days 09/05/16 [Rx] Divalproex ER [Depakote ER] 1,500 mg PO HS 7 Days 09/05/16 [Rx] Levothyroxine Sodium [Synthroid] 50 mcg PO DAILY 7 Days 09/05/16 [Rx] Nicotine 14Mg/24Hr Patch [Habitrol] 1 patch TRANSDERM DAILY 14 Days 09/05/16 [Rx ] Omeprazole 20 mg PO DAILY 7 Days 09/05/16 [Rx] QUEtiapine [SEROquel] 50 mg PO HS 7 Days 09/05/16 [Rx] Venlafaxine HCl ER [Effexor XR] 37.5 mg PO QAM 7 Days 09/05/16 [Rx] Venlafaxine HCl ER [Effexor XR] 75 mg PO QAM 7 Days 09/05/16 [Rx] hydrOXYzine PAMOATE [Vistaril] 25 mg PO Q6HR PRN 7 Days 09/05/16 [Rx] lamoTRIgine [LaMICtal] 25 mg PO BID 7 Days 09/05/16 [Rx] Follow up Appointment(s)/Referral(s): Intake, Intake [Other] - 09/15/16 4:00 pm [facility] [Other] - 09/15/16 11:00 am (Zeeshan Harmon please arrive at 10:30 am for paperwork ) Discharge Disposition: HOME SELF-CARE
== END 2016-09-05 13:33 | disposition home or self-care (01) | DRG 885 ==
LOC: 3MHU 10:11 → UNDOADMIN 10:11 → 3MHU 11:40
PROVIDERS: ADMIT Psychiatry & Neurology Psychiatry; ATTEND Psychiatry & Neurology Psychiatry
DX: F31.81 Bipolar II disorder (principal); F14.20 Cocaine dependence, uncomplicated; E03.9 Hypothyroidism, unspecified; E78.5 Hyperlipidemia, unspecified; F10.20 Alcohol dependence, uncomplicated; F17.200 Nicotine dependence, unspecified, uncomplicated; F41.9 Anxiety disorder, unspecified; K08.89 Other specified disorders of teeth and supporting structures; K21.9 Gastro-esophageal reflux disease without esophagitis; Z63.9 Problem related to primary support group, unspecified; Z79.899 Other long term (current) drug therapy; Z91.5 Personal history of self-harm; Z98.84 Bariatric surgery status
CPT/HCPCS: 70450; 80164; 84443

== ENCOUNTER 2017-09-07 14:48 | Inpatient (IN) | payer MEDICARE ==
--- NOTE | 2017-09-07 16:32 | ED ---
General Adult HPI - General Chief complaint: Psychiatric Symptoms Stated complaint: EPS eval Time Seen by Provider: 09/07/17 16:04 Source: patient, RN notes reviewed Mode of arrival: ambulatory Limitations: no limitations - History of Present Illness Initial comments: Patient 57-year-old female presenting to the emergency room today with chief complaint suicidal ideation. Patient states that she has no specific plan. She does admit that she's been under a lot of stress lately. She admits to history of anal cancer. She states she been treated for this also had to have a hysterectomy recently. She states that she recently had to move because people that she was stained with were other other recovering addicts and were not doing well. She states that she has been sober for the past year. She states she had addictions to drugs and alcohol. Patient denies any homicidal thoughts or plans. Denies visual or auditory hallucinations. Patient denies any other complaints. Patient denies any recent fever, chills, shortness of breath, chest pain, back pain, abdominal pain, nausea or vomiting, numbness or tingling, dysuria or hematuria, constipation or diarrhea, headaches or visual changes, or any other complaints. - Related Data Home Medications Medication Instructions Recorded Confirmed QUEtiapine FUMARATE 150 mg PO HS 09/07/17 09/07/17 lamoTRIgine [LaMICtal] 75 mg PO DAILY 09/07/17 09/07/17 Previous Rx's Medication Instructions Recorded Divalproex ER [Depakote ER] 1,500 mg PO HS 7 Days tab.er.24h 09/05/16 Omeprazole 20 mg PO DAILY 7 Days capsule. 09/05/16 Venlafaxine HCl ER [Effexor XR] 75 mg PO QAM 7 Days cap.er.24h 09/05/16 Allergies Allergy/AdvReac Type Severity Reaction Status Date / Time No Known Allergies Allergy Verified 09/07/17 16:47 Review of Systems ROS Statement: Those systems with pertinent positive or pertinent negative responses have been documented in the HPI. ROS Other: All systems not noted in ROS Statement are negative. Past Medical History Past Medical History: Cancer, GERD/Reflux, Hyperlipidemia, Thyroid Disorder Additional Past Medical History / Comment(s): Anal CA, GI bypass 2014 with weight loss of 154 pounds History of Any Multi-Drug Resistant Organisms: None Reported Additional Past Surgical History / Comment(s): Gastric bypass in 2015, anal cancer surgery, hysterectomy Past Anesthesia/Blood Transfusion Reactions: No Reported Reaction Past Psychological History: Anxiety, Bipolar Smoking Status: Current every day smoker Past Alcohol Use History: Abuse Past Drug Use History: Cocaine - Past Family History Father Additional Family Medical History / Comment(s): Father is alive at age 83 with no major medical problems. Mother Additional Family Medical History / Comment(s): Mother at age 80 from brain cancer. Brother(s) Additional Family Medical History / Comment(s): Patient has 3 siblings. One brother from Hailey Gehrig's disease and to her life with no major medical problems. General Exam - General Exam Comments Initial Comments: General: The patient is awake and alert, in no distress, and does not appear acutely ill. Eye: Pupils are equal, round and reactive to light, extra-ocular movements are intact. No nystagmus. There is normal conjunctiva bilaterally. No signs of icterus. Ears, nose, mouth and throat: There are moist mucous membranes and no oral lesions. Neck: The neck is supple, there is no tenderness or JVD. Cardiovascular: There is a regular rate and rhythm. No murmur, rub or gallop is appreciated. Respiratory: Lungs are clear to auscultation, respirations are non-labored, breath sounds are equal. No wheezes, stridor, rales, or rhonchi. Musculoskeletal: Normal ROM, no tenderness. Strength 5/5. Sensation intact. Pulses equal bilaterally 2+. Neurological: A&O x 3. CN II-XII intact, There are no obvious motor or sensory deficits. Coordination appears grossly intact. Speech is normal. Skin: Skin is warm and dry and no rashes or lesions are noted. Psychiatric: Cooperative. Limitations: no limitations Course Vital Signs 09/07/17 09/07/17 14:56 18:03 Temperature 99.2 F Pulse Rate 74 64 Respiratory 20 18 Rate Blood Pressure 120/63 118/61 O2 Sat by Pulse 96 99 Oximetry Medical Decision Making - Medical Decision Making Patient has been seen here in the emergency room by mental health. They recommend admission. Patient is aware the plan. - Lab Data Lab Results 09/07/17 Range/Units 16:30 Urine Opiates Screen Not Detected (NotDetected) Ur Oxycodone Screen Not Detected (NotDetected) Urine Methadone Screen Not Detected (NotDetected) Ur Propoxyphene Screen Not Detected (NotDetected) Ur Barbiturates Screen Not Detected (NotDetected) U Tricyclic Antidepress Detected H (NotDetected) Ur Phencyclidine Scrn Not Detected (NotDetected) Ur Amphetamines Screen Not Detected (NotDetected) U Methamphetamines Scrn Not Detected (NotDetected) U Benzodiazepines Scrn Not Detected (NotDetected) Urine Cocaine Screen Not Detected (NotDetected) U Marijuana (THC) Screen Not Detected (NotDetected) Disposition Clinical Impression: Suicidal ideation Disposition: TRANSFER TO PSYCH HOSP/UNIT Condition: Stable Referrals: Nonstaff,Physician [Primary Care Provider] - 1-2 days Time of Disposition: 19:45
[2017-09-07 16:52] LABS: Amphetamine Screen,Urine Not Detected (NotDetected); Barbiturate Screen,Urine Not Detected (NotDetected); Benzodiazepines Screen,Urine Not Detected (NotDetected); Cocaine Screen,Urine Not Detected (NotDetected); Methadone Screen, Urine Not Detected (NotDetected); Opiate Screen,Urine Not Detected (NotDetected); Phencyclidine Screen,Urine Not Detected (NotDetected); Tricyclic Antidepressant,Urine Detected (NotDetected); Urn Cannabinoid Scrn Not Detected (NotDetected)
[2017-09-07 16:53] LABS: Oxycodone Screen, Urine Not Detected (NotDetected)
[2017-09-07] MEDS ORDERED: MAG HYDROX/AL HYDROX/SIMETH 30 ML CUP PO PRN (22:07)
[2017-09-07] MEDS ORDERED: MAGNESIUM HYDROXIDE 2,400 MG/10 ML CUP PO PRN (22:07)
[2017-09-07] MEDS ORDERED: ACETAMINOPHEN TAB 325 MG TAB PO PRN (22:07)
[2017-09-07] MEDS: QUEtiapine 50 MG TAB PO SCH (22:19)
[2017-09-07] MEDS: DIVALPROEX ER 500 MG TAB.ER.24H PO SCH (22:19)
--- NOTE | 2017-09-08 06:35 | P.HPMEDMHU ---
History of Present Illness H&P Date: 09/08/17 Chief Complaint: Depression and suicidal ideation Patient 57-year-old female presenting to the emergency room today with chief complaint suicidal ideation. Patient states that she has no specific plan. She does admit that she's been under a lot of stress lately. She admits to history of anal cancer and apparently spread to her vagina she reports a recent vaginal surgery that involved excision of her clitoris and reports having sutures and at present. She also has a history of hysterectomy She states that she recently had to move because people that she was stained with were other other recovering addicts and were not doing well. She states that she has been sober for the past year. She states she had addictions to drugs and alcohol. Patient denies any homicidal thoughts or plans. Denies visual or auditory hallucinations. Patient denies any other complaints. Patient denies any recent fever, chills, shortness of breath, chest pain, back pain, abdominal pain, nausea or vomiting, numbness or tingling, dysuria or hematuria, constipation or diarrhea, headaches or visual changes. She does report some tooth pain and is requesting Motrin for the long history of smoking and would like a nicotine patch. Past Medical History Past Medical History: Cancer, GERD/Reflux, Hyperlipidemia, Thyroid Disorder Additional Past Medical History / Comment(s): Anal CA, GI bypass 2014 with weight loss of 154 pounds History of Any Multi-Drug Resistant Organisms: None Reported Additional Past Surgical History / Comment(s): Gastric bypass in 2015, anal cancer surgery, hysterectomy Past Anesthesia/Blood Transfusion Reactions: No Reported Reaction Smoking Status: Current every day smoker - Past Family History Father Additional Family Medical History / Comment(s): Father is alive at age 83 with no major medical problems. Mother Additional Family Medical History / Comment(s): Mother at age 80 from brain cancer. Brother(s) Additional Family Medical History / Comment(s): Patient has 3 siblings. One brother from Hailey Gehrig's disease and to her life with no major medical problems. Medications and Allergies Home Medications Medication Instructions Recorded Confirmed Type Divalproex ER [Depakote ER] 1,500 mg PO HS 7 Days tab.er.24h 09/05/16 09/08/17 Rx Omeprazole 20 mg PO DAILY 7 Days capsule. 09/05/16 09/08/17 Rx Venlafaxine HCl ER [Effexor XR] 75 mg PO QAM 7 Days cap.er.24h 09/05/16 Rx QUEtiapine FUMARATE 150 mg PO HS 09/07/17 09/08/17 History lamoTRIgine [LaMICtal] 75 mg PO DAILY 09/07/17 09/08/17 History Allergies Allergy/AdvReac Type Severity Reaction Status Date / Time No Known Allergies Allergy Verified 09/08/17 01:19 Physical Exam Vitals: Vital Signs Temp Pulse Pulse Resp BP BP Pulse Ox 09/07/17 21:14 97.1 F L 53 L 16 124/75 100 09/07/17 20:42 65 18 112/72 98 09/07/17 18:03 64 18 118/61 99 09/07/17 14:56 99.2 F 74 20 120/63 96 Intake and Output 09/07/17 09/07/17 09/08/17 14:59 22:59 06:59 Other: Weight 74.843 kg Constitutional: No acute distress, conversant, pleasant Eyes: Anicteric sclerae, moist conjunctiva, no lid-lag, PERRLA ENMT: NC/AT,Oropharynx clear, no erythema, exudates Neck:Supple, FROM, no masses, or JVD, No carotid bruits; No thyromegaly Lungs: Clear to auscultation, Clear to percussion, Normal respiratory effort, no accessory muscle use Cardiovascular: Heart regular in rate and rhythm, No murmurs, gallops, or rubs no peripheral edema Abdominal: Soft Nontender, nom distended, no guarding, no rebound or rigidity, Normoactive bowel sounds No hepatomegaly, No splenomegaly, No palpable mass No abdominal wall hernia noted Skin: Normal temperature, tone, texture, turgor, No induration No subcutaneous nodules, No rash, lesions, No ulcers Extremities:No digital cyanosis No clubbing, Pedal pulses intact and symmetrical Radial pulses intact and symmetrical Normal gait and station, No calf tenderness Psychiatric: Alert and oriented to person, place and time, flat affect, good eye contact Neuro: Muscles Strength 5/5 in all 4 extremities, Sensation to light touch grossly present throughout, Cranial nerves II-XII grossly intact. No focal sensory deficits Cranial Nerve Examination - Cranial Nerves Cranial Nerve II- Optic: Intact Cranial Nerve III- Oculomotor: Intact Cranial Nerve IV- Trochlear: Intact Cranial Nerve V- Trigeminal: Intact Cranial Nerve - Abducens: Intact Cranial Nerve VII- Facial: Intact Cranial Nerve VIII- Auditory: Intact Cranial Nerve IX- Glossopharyngeal: Intact Cranial Nerve X- Vagus: Intact Cranial Nerve XI- Accessory: Intact Cranial Nerve XII- Hypoglossal: Intact Results Labs: Abnormal Lab Results - Last 24 Hours (Table) 09/07/17 Range/Units 16:30 U Tricyclic Antidepress Detected H (NotDetected) Thrombosis Risk Factor Assmnt - Choose All That Apply Each Factor Represents 1 point: Age 41-60 years, Obesity (BMI >25) Thrombosis Risk Factor Assessment Total Risk Factor Score: 2 Thrombosis Risk Factor Assessment Level: Low Risk Assessment and Plan (1) Depression Current Visit: Yes Status: Acute Code(s): F32.9 - MAJOR DEPRESSIVE DISORDER , SINGLE EPISODE, UNSPECIFIED SNOMED Code(s): 37323304 (2) Suicidal ideation Current Visit: Yes Status: Acute Code(s): R45.851 - SUICIDAL IDEATIONS SNOMED Code(s): 1000887 (3) Bipolar disorder Current Visit: Yes Status: Acute Code(s): F31.9 - BIPOLAR DISORDER, UNSPECIFIED SNOMED Code(s): 37952981 (4) Tooth pain Current Visit: Yes Status: Acute Code(s): K08.89 - OTHER SPECIFIED DISORDERS OF TEETH AND SUPPORTING STRUCTURES SNOMED Code(s): 41305311 (5) Smoking history Current Visit: Yes Status: Acute Code(s): Z87.891 - PERSONAL HISTORY OF NICOTINE DEPENDENCE SNOMED Code(s): 56279891212369302 Plan: The patient is admitted to the mental health unit displaying a greater than 2 midnight stay for ongoing depression with suicidal ideation history of bipolar disorder, will defer to inpatient psychiatry team regarding ongoing medicinal therapy and CPT therapy. The patient does have a history of anal cancer apparently spread to her vagina with recent surgery involving removal of her clitoris. She also is complaining of tooth pain we'll start her on Motrin and give her nicotine patch for her ongoing tobacco dependence. We'll plan to sign off pending patient's lab results I appreciate the opportunity to be involved in the ongoing care of this patient. Further questions hesitate to contact the [facility] inpatient team
[2017-09-08] MEDS: NICOTINE 14MG/24HR PATCH TRANSDERM SCH (09:11)
[2017-09-08] MEDS: lamoTRIgine 25 MG TAB PO SCH ×5 (09:11→21:09)
[2017-09-08] MEDS: PANTOPRAZOLE 40 MG TABLET PO SCH (09:12)
[2017-09-08] MEDS: IBUPROFEN 400 MG TAB PO SCH ×3 (09:12→21:09)
[2017-09-08] MEDS: VENLAFAXINE HCL ER 75 MG CAP PO SCH (09:12)
[2017-09-08 09:16] LABS: Basophils # (A) 0.1 k/uL (0-0.2); Basophils % (A) 1 %; Eosinophils # (A) 0.2 k/uL (0-0.7); Eosinophils % (A) 3 %; HCT 42.9 % (34.0-46.0); HGB 14.3 gm/dL (11.4-16.0); Lymphocytes # (A) 2.8 k/uL (1.0-4.8); Lymphocytes % (A) 46 %; MCH 30.8 pg (25.0-35.0); MCHC 33.3 g/dL (31.0-37.0); MCV 92.5 fL (80.0-100.0); Mean Platelet Volume 7.9; Monocytes # (A) 0.4 k/uL (0-1.0); Monocytes % (A) 7 %; Neutrophils # (A) 2.6 k/uL (1.3-7.7); Neutrophils % (A) 42 %; Platelet Count 213 k/uL (150-450); RBC 4.64 m/uL (3.80-5.40); RDW 14.3 % (11.5-15.5); WBC 6.1 k/uL (3.8-10.6)
[2017-09-08 09:42] LABS: ALT 23 U/L (9-52); AST 27 U/L (14-36); Albumin 3.7 g/dL (3.5-5.0); Alkaline Phosphatase 73 U/L (38-126); Anion Gap 10 mmol/L; Blood Urea Nitrogen 16 mg/dL (7-17); Calcium 9.9 mg/dL (8.4-10.2); Carbon Dioxide 29 mmol/L (22-30); Chloride 105 mmol/L (98-107); Cholesterol 273 mg/dL (<200); Glucose 96 mg/dL (74-99); HDL Cholesterol 92 mg/dL (40-60); LDL Cholesterol,Calculated 147 mg/dL (0-99); Potassium 4.8 mmol/L (3.5-5.1); Sodium 144 mmol/L (137-145); Total Bilirubin 0.4 mg/dL (0.2-1.3); Total Protein 6.2 g/dL (6.3-8.2); Triglycerides 171 mg/dL (<150)
--- NOTE | 2017-09-08 11:04 | P.HP ---
Psychiatric H&P - . History & Physical: Allergies Allergy/AdvReac Type Severity Reaction Status Date / Time No Known Allergies Allergy Verified 09/08/17 01:19 Vital Signs Temp 97.5 F L 09/08/17 06:48 Pulse 51 L 09/08/17 06:48 Resp 14 09/08/17 06:48 BP 101/53 09/08/17 06:48 Pulse Ox 100 09/07/17 21:14 Intake & Output 09/07/17 09/08/17 09/08/17 18:59 06:59 18:59 Weight 74.843 kg Laboratory Last Values WBC 6.1 k/uL (3.8-10.6) 09/08/17 08:50 RBC 4.64 m/uL (3.80-5.40) 09/08/17 08:50 Hgb 14.3 gm/dL (11.4-16.0) 09/08/17 08:50 Hct 42.9 % (34.0-46.0) 09/08/17 08:50 MCV 92.5 fL (80.0-100.0) 09/08/17 08:50 MCH 30.8 pg (25.0-35.0) 09/08/17 08:50 MCHC 33.3 g/dL (31.0-37.0) 09/08/17 08:50 RDW 14.3 % (11.5-15.5) 09/08/17 08:50 Plt Count 213 k/uL (150-450) 09/08/17 08:50 Neutrophils % 42 % 09/08/17 08:50 Lymphocytes % 46 % 09/08/17 08:50 Monocytes % 7 % 09/08/17 08:50 Eosinophils % 3 % 09/08/17 08:50 Basophils % 1 % 09/08/17 08:50 Neutrophils # 2.6 k/uL (1.3-7.7) 09/08/17 08:50 Lymphocytes # 2.8 k/uL (1.0-4.8) 09/08/17 08:50 Monocytes # 0.4 k/uL (0-1.0) 09/08/17 08:50 Eosinophils # 0.2 k/uL (0-0.7) 09/08/17 08:50 Basophils # 0.1 k/uL (0-0.2) 09/08/17 08:50 Sodium 144 mmol/L (137-145) 09/08/17 08:50 Potassium 4.8 mmol/L (3.5-5.1) 09/08/17 08:50 Chloride 105 mmol/L (98-107) 09/08/17 08:50 Carbon Dioxide 29 mmol/L (22-30) 09/08/17 08:50 Anion Gap 10 mmol/L 09/08/17 08:50 BUN 16 mg/dL (7-17) 09/08/17 08:50 Creatinine 0.70 mg/dL (0.52-1.04) 09/08/17 08:50 Est GFR (CKD-EPI)AfAm >90 (>60 ml/min/1.73 sqM) 09/08/17 08:50 Est GFR (CKD-EPI)NonAf >90 (>60 ml/min/1.73 sqM) 09/08/17 08:50 Glucose 96 mg/dL (74-99) 09/08/17 08:50 Calcium 9.9 mg/dL (8.4-10.2) 09/08/17 08:50 Total Bilirubin 0.4 mg/dL (0.2-1.3) 09/08/17 08:50 AST 27 U/L (14-36) 09/08/17 08:50 ALT 23 U/L (9-52) 09/08/17 08:50 Alkaline Phosphatase 73 U/L (38-126) 09/08/17 08:50 Total Protein 6.2 g/dL (6.3-8.2) L 09/08/17 08:50 Albumin 3.7 g/dL (3.5-5.0) 09/08/17 08:50 Triglycerides 171 mg/dL (<150) H 09/08/17 08:50 Cholesterol 273 mg/dL (<200) H 09/08/17 08:50 LDL Cholesterol, Calc 147 mg/dL (0-99) H 09/08/17 08:50 HDL Cholesterol 92 mg/dL (40-60) H 09/08/17 08:50 TSH 4.290 mIU/L (0.465-4.680) 09/08/17 08:50 Urine Opiates Screen Not Detected (NotDetected) 09/07/17 16:30 Ur Oxycodone Screen Not Detected (NotDetected) 09/07/17 16:30 Urine Methadone Screen Not Detected (NotDetected) 09/07/17 16:30 Ur Propoxyphene Screen Not Detected (NotDetected) 09/07/17 16:30 Ur Barbiturates Screen Not Detected (NotDetected) 09/07/17 16:30 Valproic Acid 62.0 ug/mL 09/08/17 08:50 U Tricyclic Antidepress Detected (NotDetected) H 09/07/17 16:30 Ur Phencyclidine Scrn Not Detected (NotDetected) 09/07/17 16:30 Ur Amphetamines Screen Not Detected (NotDetected) 09/07/17 16:30 U Methamphetamines Scrn Not Detected (NotDetected) 09/07/17 16:30 U Benzodiazepines Scrn Not Detected (NotDetected) 09/07/17 16:30 Urine Cocaine Screen Not Detected (NotDetected) 09/07/17 16:30 U Marijuana (THC) Screen Not Detected (NotDetected) 09/07/17 16:30 09/08/17 10:53 IDENTIFYING DATA: This patient is a 57-year-old female who was admitted to the mental health unit through the emergency room for suicidal ideation. HPI: The patient is known to my outpatient practice for several years. She presented to the emergency room reporting feelings of being overwhelmed and hopeless with suicidal ideation. She endorses significant difficulty with sleep , she has been excessively tearful. She does carry a diagnosis of bipolar disorder. She has a history of being dependent on cocaine and alcohol but has almost 1 year sobriety. Recently she has been struggling with medical comorbidities including recurrent colorectal cancer as well as dysplastic cells that it spread to her genital region. She has undergone an excision procedure recently and continues to follow with her meteorological engineer. She has been on probation which is due to this coming Monday. She states she does not want to use substances but is afraid of the freedom that she will then have. 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 She does have a history of manic episodes but does not endorse those symptoms at this time other than difficulty with sleep. She reports that she was able to sleep better last night knowing that she feels safe here. She is reporting no thoughts of harming others she is endorsing no auditory or visual hallucinations or specific delusions. PAST PSYCHIATRIC HISTORY: She has had several inpatient psychiatric admissions over the last several years. She is currently treated with Seroquel 150 mg at bedtime, Effexor XR 75 mg daily, Lamictal 25 mg 3 times daily, Depakote ER 1500 mg at bedtime. Liver enzymes are within normal limits her most recent Depakote level is 62. She does have a history of suicidal ideation in the past. She does work with an outpatient therapist at [facility]. PMH: Hyperlipidemia hypothyroidism history, history of colorectal cancer with spread of dysplastic cells. She does have a history of undergoing bariatric surgery. ALLERGIES: NO KNOWN DRUG ALLERGIES MEDICATIONS: As above CHEMICAL DEPENDENCY HISTORY: History of cocaine and alcohol use disorder she has been in remission from those for almost 1 year. She has participated in inpatient chemical dependency treatment in the past. FAMILY PSYCHIATRIC HISTORY: Unknown FAMILY CHEMICAL DEPENDENCY HISTORY: unknown SOCIAL HISTORY: The patient is a 57-year-old female, she is not she resides alone in her own apartment. She does have a disability income. She was previously employed for 30 years prior to going on disability. She has no children. She does have infrequent contact with family including mother father and sister. Legal history uncertain at this time however she is still on probation until next week. Abuse history uncertain. MENTAL STATUS EXAM: Patient is alert she is a female appearing her stated age she is dressed in her own clothing. Eye contact is appropriate speech is fluent spontaneous nonpressured. She endorses a sad mood with hopelessness thoughts she is tearful throughout the session. She does express comfort in being on the mental health unit as a provides a feeling of safety. She presented with suicidal thoughts but states she would not harm herself here. No homicidal ideation intent or plan. She is endorsing no auditory or visual hallucinations and there is no observed evidence of psychosis. She demonstrates no tangential thinking loose associations or flight of ideas. She does not appear hypomanic or manic. She demonstrates no abnormal involuntary movements and demonstrates no verbal or physical aggressiveness. She is oriented to person place and date. She is able to spell world backwards. STRENGTHS/WEAKNESSES: Strengths: Housing, income, willingness to continue outpatient care weaknesses: Medical comorbidities INTELLECTUAL FUNCTIONING: Average IMPRESSIONS: [] 1. Bipolar 1 disorder most recent depressed, cocaine use disorder and alcohol use disorder in early remission 2. Significant medical comorbidity PLAN: The patient has been admitted to the mental health unit she is here voluntarily. We reviewed presenting symptoms and medication options and we have decided to continue her psychotropic medications as they are written and noted above. She has been seen by internal medicine for routine history and physical exam. Social work will meet with the patient to complete a psychosocial assessment. We will monitor her for safety and encourage her full participation in the milieu.
[2017-09-08 18:48] LABS: Hemoglobin A1C 5.4 % (4.0-6.0)
[2017-09-08] MEDS: DIVALPROEX ER 500 MG TAB.ER.24H PO SCH (21:06)
[2017-09-08] MEDS: QUEtiapine 50 MG TAB PO SCH (21:08)
[2017-09-09 07:01] VITALS: RESP 16
[2017-09-09] MEDS: NICOTINE 14MG/24HR PATCH TRANSDERM SCH (09:20)
[2017-09-09] MEDS: IBUPROFEN 400 MG TAB PO SCH ×3 (09:21→21:12)
[2017-09-09] MEDS: VENLAFAXINE HCL ER 75 MG CAP PO SCH (09:21)
[2017-09-09] MEDS: lamoTRIgine 25 MG TAB PO SCH ×3 (09:21→21:15)
[2017-09-09] MEDS: PANTOPRAZOLE 40 MG TABLET PO SCH (09:21)
[2017-09-09 11:10] LABS: Appearance,Urine Clear (Clear); Bilirubin,Urine Negative (Negative); Blood,Urine Negative (Negative); Color,Urine Yellow; Glucose,Urine (UA) Negative (Negative); Ketones,Urine Negative (Negative); Leukocyte Esterase,Urine Negative (Negative); Nitrite,Urine Negative (Negative); PH, Urine 6.5 (5.0-8.0); Protein,Urine Negative (Negative); Specific Gravity,Urine 1.016 (1.001-1.035)
--- NOTE | 2017-09-09 12:49 | P.PN ---
Progress Note - Text Interval history: The patient is found in group she follows me to an interview room. She reports that her mood is improving. Again she was able to successfully sleep throughout the night as she feels safe here. We reviewed her psychotropic medications and decided to make no changes to them. She is attending all groups. She discusses strategies she is hoping to employ to help develop coping skills further. Again she presented overwhelmed psychiatrically in the context of serious medical comorbidity. She states that she continues to try to learn how to cope with stressors sober which has been foreign to her. Mental status exam: The patient is alert she is dressed in her own clothing eye contact is appropriate speech is fluent spontaneous nonpressured. She reports her mood is down but it is improving she is reporting no acute suicidal ideation intent or plan however there is still some suicidal ideation that is more passive. No homicidal ideation intent or plan. She is endorsing no auditory or visual hallucinations or any specific delusions. She demonstrates no tangential thinking loose associations or flight of ideas. Insight and judgment improving. She remains oriented to person place and date. Plan: The patient will continue on her current psychotropic medications she is demonstrating clinical improvement. We will monitor her for safety. She is encouraged to continue participating in the milieu.
[2017-09-09 17:46] LABS: Urine Alcohol Negative (Negative); Urine Barbiturate Negative (Negative); Urine Cocaine Negative (Negative); Urine Methadone Negative (Negative); Urine Opiates Negative (Negative); Urine Phencyclidine Negative (Negative)
[2017-09-09] MEDS: DIVALPROEX ER 500 MG TAB.ER.24H PO SCH (21:12)
[2017-09-09] MEDS: QUEtiapine 50 MG TAB PO SCH (21:13)
[2017-09-10] MEDS: NICOTINE 14MG/24HR PATCH TRANSDERM SCH (09:03)
[2017-09-10] MEDS: VENLAFAXINE HCL ER 75 MG CAP PO SCH (09:03)
[2017-09-10] MEDS: IBUPROFEN 400 MG TAB PO SCH ×3 (09:03→21:21)
[2017-09-10] MEDS: PANTOPRAZOLE 40 MG TABLET PO SCH (09:03)
[2017-09-10] MEDS: lamoTRIgine 25 MG TAB PO SCH ×3 (09:04→21:21)
--- NOTE | 2017-09-10 11:30 | P.PN ---
Progress Note - Text Interval history: The patient is found in group she follows me to an interview room. She reports her mood is still depressed but feels that it's improving each day. She states that she still has some fleeting suicidal thoughts but those seem to improve each day. She did sleep last evening staff reported she slept 7 hours. Appetite stable. She has been participating in the [employer]. She has completed some worksheets outlining short-term and intermediate goals and she reviews those with me today. Mental status exam: The patient is alert she is dressed in her own clothing hygiene grooming are adequate. She has fluent spontaneous speech. She is verbose but easily directable. She demonstrates no tangential thinking loose associations or flight of ideas. She is reporting fleeting suicidal thoughts now seem to improve each day. She is reporting no homicidal ideation intent or plan. There is no report or evidence of psychosis. She demonstrates no verbal or physical aggressiveness she demonstrates no abnormal involuntary movements. Insight and judgment slowly improving. She remains oriented to person place and date. Plan: The patient will continue on her current psychotropic medications. We will continue monitoring her for safety. I expect she'll be appropriate for discharge Monday or Monday depending on her progress. We will continue to monitor her for safety.
[2017-09-10] MEDS: QUEtiapine 50 MG TAB PO SCH (21:21)
[2017-09-10] MEDS: DIVALPROEX ER 500 MG TAB.ER.24H PO SCH (21:22)
[2017-09-11 07:04] VITALS: BP 119/73; PULSE 56; TEMP 97.5
[2017-09-11] MEDS: IBUPROFEN 400 MG TAB PO SCH (08:01)
[2017-09-11] MEDS: VENLAFAXINE HCL ER 75 MG CAP PO SCH (08:01)
[2017-09-11] MEDS: NICOTINE 14MG/24HR PATCH TRANSDERM SCH (08:01)
[2017-09-11] MEDS: PANTOPRAZOLE 40 MG TABLET PO SCH (08:01)
[2017-09-11] MEDS: lamoTRIgine 25 MG TAB PO SCH (08:01)
--- NOTE | 2017-09-11 09:08 | P.DS ---
Providers Date of admission: 09/07/17 20:30 Expected date of discharge: 09/11/17 Attending physician: Jakub Hedrick Consults: 09/07/17 22:07 Consult Physician Routine Consulting Provider: Dianelys Rae Consult Reason/Comments: medical management Do you want consulting provider notified?: Already Contacted Primary care physician: Physician Nonstaff - Discharge Diagnosis(es) (1) Bipolar 1 disorder, depressed Current Visit: Yes Status: Acute Priority: High (2) Cocaine use disorder, severe, in sustained remission Current Visit: Yes Status: Acute Priority: Medium (3) Alcohol use disorder, severe, in sustained remission Current Visit: Yes Status: Acute Priority: Medium Hospital Course: Brief summary of admission note: This patient is a 57-year-old female who was admitted to the mental health unit through the emergency room for suicidal ideation. She is known to my outpatient practice for several years. She presented feeling overwhelmed with hopelessness thinking and suicidal thoughts she had difficulty with sleep and had been excessively tearful. She had recently been struggling with other physical medical comorbidities. For full details please refer to my psychiatric evaluation dated 09/08/2017. Summary of hospital course: The patient was admitted to the mental health unit she signed in voluntarily. We reviewed her presenting symptoms and medication options. We decided to continue her medications as they were written. The patient participated in milieu attending each group. She was seen by internal medicine for routine history and physical exam and met with social work several times. She did not want family members involved in her care. She was willing to allow her friend to be involved in discharge planning. The patient reported a progressive improvement of her symptoms while here. She has noted a complete resolution of any suicidal ideation. Mental status exam: The patient is a female appearing her stated age. She seated calmly. Eye contact is appropriate. Speech is fluent spontaneous nonpressured. She reports her mood is much improved she no longer has any hopelessness thinking she denies having any suicidal ideation intent or plan. No report of homicidal ideation intent or plan. She endorses no auditory or visual hallucinations or any specific delusions. There is no observed evidence of psychosis. She demonstrates no tangential thinking this associations or flight of ideas. She does not appear hypomanic or manic. She remains oriented to person place and date. She demonstrates no abnormal involuntary movements. She demonstrates no verbal or physical aggressiveness. Affect is appropriately expressive. Impressions 1. Bipolar 1 disorder most recent depressed, cocaine use disorder in sustained remission, alcohol use disorder in sustained remission 2. Significant medical comorbidity Plan: The patient will be discharged from mental health unit today to return to her own residence. She will follow up with her outpatient therapist and she will follow-up with me for ongoing psychiatric medication management. Today is the one-year anniversary of her sobriety. She does continue to plan to attend . She will follow-up with her other medical specialists as appropriate. She will continue on Effexor XR 75 mg daily Seroquel 150 mg at bedtime Lamictal 25 mg 3 times daily Depakote ER 1500 mg at bedtime. There is no imminent safety risk she is appropriate for continued care as an outpatient. Patient Condition at Discharge: Stable Plan - Discharge Summary Discharge Rx Participant: No New Discharge Prescriptions: New Nicotine 14Mg/24Hr Patch [Habitrol] 1 patch TRANSDERM DAILY #12 patch Continue Divalproex ER [Depakote ER] 1,500 mg PO HS 7 Days tab.er.24h Omeprazole 20 mg PO DAILY 7 Days capsule. Venlafaxine HCl ER [Effexor XR] 75 mg PO QAM 7 Days cap.er.24h QUEtiapine FUMARATE 150 mg PO HS lamoTRIgine [LaMICtal] 75 mg PO DAILY Discharge Medication List Divalproex ER [Depakote ER] 1,500 mg PO HS 7 Days tab.er.24h 09/05/16 [Rx] Omeprazole 20 mg PO DAILY 7 Days capsule. 09/05/16 [Rx] Venlafaxine HCl ER [Effexor XR] 75 mg PO QAM 7 Days cap.er.24h 09/05/16 [Rx] QUEtiapine FUMARATE 150 mg PO HS 09/07/17 [History] lamoTRIgine [LaMICtal] 75 mg PO DAILY 09/07/17 [History] Nicotine 14Mg/24Hr Patch [Habitrol] 1 patch TRANSDERM DAILY #12 patch 09/11/17 [ Rx] Follow up Appointment(s)/Referral(s): Nonstaff,Physician [Primary Care Provider] - 1-2 days
== END 2017-09-11 13:36 | disposition home or self-care (01) | DRG 885 ==
LOC: EC 14:48 → 3MHU 20:30
PROVIDERS: ADMIT Psychiatry & Neurology Psychiatry; ATTEND Psychiatry & Neurology Psychiatry
DX: F31.9 Bipolar disorder, unspecified (principal); R45.851 Suicidal ideations; E03.9 Hypothyroidism, unspecified; E78.5 Hyperlipidemia, unspecified; F10.21 Alcohol dependence, in remission; F14.21 Cocaine dependence, in remission; F17.200 Nicotine dependence, unspecified, uncomplicated; K21.9 Gastro-esophageal reflux disease without esophagitis; Z79.899 Other long term (current) drug therapy; Z80.8 Family history of malignant neoplasm of other organs or systems; Z98.84 Bariatric surgery status; Z90.710 Acquired absence of both cervix and uterus; Z85.048 Personal history of other malignant neoplasm of rectum, rectosigmoid junction, and anus; K08.89 Other specified disorders of teeth and supporting structures
CPT/HCPCS: 80053; 80061; 80164; 80306; 81003; 82075; 83036; 84443; 85025; 99285

== ENCOUNTER 2018-01-17 17:16 | Emergency (ER) | payer MEDICARE ==
[2018-01-17 17:22] VITALS: BP 137/78; PULSE 88; RESP 20; TEMP 98
[2018-01-17] MEDS ORDERED: ACETAMINOPHEN TAB 325 MG TAB PO STA (18:14)
--- NOTE | 2018-01-17 19:26 | CT ---
EXAMINATION TYPE: CT brain poly [facility] DATE OF EXAM: 01/17/2018 COMPARISON: 08/28/2016 HISTORY: Fall down stairs today. Injury to top of head. CT DLP: 1388.9 mGycm Automated exposure control for dose reduction was used. TECHNIQUE: CT scan of the head and cervical spine are performed without contrast. FINDINGS: There is no acute intracranial hemorrhage, mass effect, or midline shift identified. The ventricles and sulci are within normal limits in size. The globes are intact and the visualized sin uses are clear. Cervical spine is visualized in its entirety from C1 through upper thoracic levels and demonstrates s atisfactory alignment without evidence of acute fracture or dislocation. Prevertebral soft tissue ap pears within normal limits. The C1-C2 articulation is unremarkable. IMPRESSION: 1. There is no acute fracture or dislocation evident in the cervical spine. 2. No acute intracranial hemorrhage, mass effect, or midline shift is seen.
[2018-01-17] MEDS ORDERED: KETOROLAC 30 MG/ML 1 ML VIAL IM STA (19:43)
--- NOTE | 2018-01-17 19:45 | ED ---
Fall HPI - General Chief Complaint: Fall Stated Complaint: HEAD INJURY, FALL DOWN 5 STEPS Time Seen by Provider: 01/17/18 17:51 Source: patient Mode of arrival: wheelchair - History of Present Illness Initial Comments: 57yo female with PMH of anal cancer and thyroid disorder who presents today for cc of fall x2 days ago. Pt stated that she was getting ready for bed and grabbed her water and things for bed and were carrying them up the stairs with her hands full. Pt stated that she wasnt able to use the hand rail and lost her balance around the 10th step. She fell forward first striking her forehead, then sliding down the stair on her back to the bottom. Upon initial history taking pt denied LOC. However later she stated that she thinks she may have loss conciousnes but cannot recall how long. Pt didnt feel like presenting to the ER, so she just went to tbed. Pt admitted to all over body tenderness but denies pain in any specific joint. Pt states it feel mostly muscular in nature, "not like anything is broken". Pt does admit to some neck tenderness, headache, and some visual changes- stating it seems a little blurrier than usual. Pt describes the headache as a dull ache, in the front of her head withour radiation, denies nausea, vomiting, or amnesia. In addition pt denies dysphagia , ataxia, dyspraxia, loss of sensation, muscle weakness, numbness, tingling or parathesias. Pt was concerned she may have a concussion so she presented to the ER. Upon arrival pt was stating that she "could not walk" because she was sore. Vital signs stable. Patient denies any recent fever, chills, shortness of breath , chest pain, abdominal pain, nausea or vomiting, numbness or tingling, dysuria or hematuria, constipation or diarrhea, or any other complaints. - Related Data Home Medications Medication Instructions Recorded Confirmed QUEtiapine FUMARATE 150 mg PO HS 09/07/17 09/08/17 lamoTRIgine [LaMICtal] 75 mg PO DAILY 09/07/17 09/08/17 Previous Rx's Medication Instructions Recorded Divalproex ER [Depakote ER] 1,500 mg PO HS 7 Days tab.er.24h 09/05/16 Omeprazole 20 mg PO DAILY 7 Days capsule. 09/05/16 Venlafaxine HCl ER [Effexor XR] 75 mg PO QAM 7 Days cap.er.24h 09/05/16 Nicotine 14Mg/24Hr Patch [Habitrol] 1 patch TRANSDERM DAILY #12 patch 09/11/17 Allergies Allergy/AdvReac Type Severity Reaction Status Date / Time No Known Allergies Allergy Verified 01/17/18 17:22 Review of Systems ROS Statement: Those systems with pertinent positive or pertinent negative responses have been documented in the HPI. ROS Other: All systems not noted in ROS Statement are negative. Constitutional: Denies: fever, chills, weakness, night sweats Eyes: Reports: as per HPI, vision change ENT: Denies: hearing loss Cardiovascular: Denies: chest pain, palpitations, edema Gastrointestinal: Denies: abdominal pain, nausea, vomiting, diarrhea, constipation Genitourinary: Denies: urgency, dysuria Musculoskeletal: Reports: myalgia. Denies: back pain, joint swelling, arthralgia Skin: Denies: rash, lesions Neurological: Reports: headache. Denies: weakness, numbness, paresthesias, confusion Past Medical History Past Medical History: Cancer, GERD/Reflux, Hyperlipidemia, Thyroid Disorder Additional Past Medical History / Comment(s): Anal CA, GI bypass 2014 with weight loss of 154 pounds History of Any Multi-Drug Resistant Organisms: None Reported Additional Past Surgical History / Comment(s): Gastric bypass in 2014, anal cancer surgery, hysterectomy Past Anesthesia/Blood Transfusion Reactions: No Reported Reaction Past Psychological History: Anxiety, Bipolar Smoking Status: Current every day smoker Past Alcohol Use History: None Reported Past Drug Use History: None Reported - Past Family History Father Additional Family Medical History / Comment(s): Father is alive at age 83 with no major medical problems. Mother Additional Family Medical History / Comment(s): Mother at age 80 from brain cancer. Brother(s) Additional Family Medical History / Comment(s): Patient has 3 siblings. One brother from Hailey Gehrig's disease and to her life with no major medical problems. General Exam - General Exam Comments Initial Comments: General: The patient is awake and alert, in no distress, and does not appear acutely ill. Eye: +3 mm pupils are equal, round and reactive to light, extra-ocular movements are intact. No APD or conjugate gaze. No nystagmus. There is normal conjunctiva bilaterally. No signs of icterus. Ears, nose, mouth and throat: There are moist mucous membranes and no oral lesions. Neck: The neck is supple, there is no tenderness or JVD. Cardiovascular: There is a regular rate and rhythm. No murmur, rub or gallop is appreciated. Respiratory: Lungs are clear to auscultation, respirations are non-labored, breath sounds are equal. No wheezes, stridor, rales, or rhonchi. Musculoskeletal: Normal ROM of UE/LE, pt complains of diffuse myalgia with palpation, however when distracted and same pressure applied no complaints. Strength 5/5 UE/ LE equally b/l. Sensation intact. DP and radial pulses equal bilaterally 2+. Full ROM at C-spine, no midline tenderness to palpation, pt complains of paravertebral tenderness of neck b/l. Neurological: AAOx3, memory intact to immediately, intermediate and chcf recall. Able to follow simple verbal. Able to name a common object (pen). High quality, labial (pa) and lingual (la) speech. Low quality posterior pharynx/ larynx (ga) voice sounds. Able to express general knowledge (days in a week). No hemineglect or inattention noted. Finger agnosia (-) and spatially oriented (identified L index finger touched R shoulder with L index finger). Cranial Nerves- CN I-CN XII intact. No evidene of extinction. No visible bulk atrophy, hypertrophy, fasciculations, or myoclonus of the UE or LE b/l. Full PROM in UE and LE b/l. Bilateral muscle strength 5/5 for the following muscles: deltoid, biceps, triceps, brachioradialis, wrist extensors/flexor, hip flexor, hip abductors/adductors, hamstrings, quadriceps, feet dorsiflexors/plantar flexors. Finger to nose, finger to the examiners finger, and heel to hardy coordinated and accurate b/l. Coordinated and even demonstration of hand flip, finger to thumb, and toe tap b/l. (-) Babinski. +2 brachioradialis, triceps, patellar, and Achilles DTR b/l. (-) primitive reflexes. Gait is coordinated and even in stride with tandem, toe and heel walk. Maintains balance with monopedal stance. (-) Romberg. (-) pronator drift. No nuchal rigidity. (-) Brudzinskis and Kernig signs. Skin: Skin is warm and dry and no rashes or lesions are noted. No ecchymosis anywhere on full body examination, abrasion or lacerations. No contusions of the forehead or anywhere of the scalp. Pt complains of tenderness to palpation over top of head, no palpable mass. No willis signs, raccoon eyes, rhinorrhea or otorrhea. Psychiatric: Cooperative, appropriate mood & affect, normal judgment. Limitations: no limitations Course Vital Signs 01/17/18 17:20 Temperature 98.0 F Pulse Rate 88 Respiratory 20 Rate Blood Pressure 137/78 O2 Sat by Pulse 99 Oximetry Medical Decision Making - Medical Decision Making 57 yo female with CC of head injury after fall 2 days ago and all over muscle aches. Pt appeared to be inconsistent with story at times. Upon first history denied LOC and later during exam when friend arrived, he stated that she told him that she had lost conciousness. Neuro exam unremarkable. Head to toe skin and MSK exam revealed no areas of ecchymosis, abrasions or laceration or any signs or symptoms of falls. No racoon eyes, rhinorrhea, or willis sign. Full ROM at C-spine with no midline tenderness to palpation. There was no contusions of the scalp palpated. Pt stated in triage she couldnt walk however she was able to stand get undress, walk in the room and even stand on one leg to remove pants without difficulty. Pt was very coordinated. Pt admitted to pain in all muscles of the body screaming in pain when I touched her skin, however when distracted and touching same areas no pain reaction. Given hx of head injury and fall CT of the head and neck was obtained, revealing no acute intracranial process or fx/dislocation of cspine. Pt given tylenol and toradol IM for pain because she couldnt take NSAIDS due to gastric bypass. Pt told nurse when I was not in the room that I said she could have norco, however I did not say this. When pt friend came and stated she lost conciousness and I asked the pt the same question for the second time she said she thinks she did, "for a few minutes". denies use of alcohol. I discussed this with Dr. Santiago and he stated that she should be transferred to [facility] for trauma, concussion with LOC for further evaluation by neurologist and monitoring. Pt stated she wanted to leave and refused to stay for any addition testing or observation here or for transfer. She stated she is leaving now. She was hungry and wanted [place]. Pt signed paperworks and left again medical advice. Pt waked comfortable without difficulty out of the ER, smiling. Appearing well, pt was not angry. Disposition Clinical Impression: Left against medical advice Disposition: Left Against Medical Advice Additional Instructions: . Is patient prescribed a controlled substance at d/c from ED?: No Referrals: None,Stated [Primary Care Provider] - 1-2 days Time of Disposition: 20:00
== END 2018-01-17 20:11 | disposition left against medical advice (07) ==
LOC: EC 17:16
DX: M79.1 Myalgia (principal); F31.9 Bipolar disorder, unspecified; F41.9 Anxiety disorder, unspecified; F17.200 Nicotine dependence, unspecified, uncomplicated; Z85.048 Personal history of other malignant neoplasm of rectum, rectosigmoid junction, and anus
CPT/HCPCS: 72125; 70450; 99284; 96372; J1885

== ENCOUNTER 2018-06-29 10:37 | Observation (INO) | payer MEDICARE ==
[2018-06-29] MEDS ORDERED: ASPIRIN 81 MG PO STA (10:55)
[2018-06-29] MEDS ORDERED: HYDROcodone/APAP 5-325MG 1 EACH TAB PO STA (11:07)
--- NOTE | 2018-06-29 11:11 | ED ---
General Adult HPI - General Chief complaint: Chest Pain Stated complaint: chest pain Time Seen by Provider: 06/29/18 10:46 Source: patient Mode of arrival: ambulatory Limitations: no limitations - Related Data Home Medications Medication Instructions Recorded Confirmed QUEtiapine FUMARATE 150 mg PO HS 09/07/17 09/08/17 lamoTRIgine [LaMICtal] 75 mg PO DAILY 09/07/17 09/08/17 Previous Rx's Medication Instructions Recorded Divalproex ER [Depakote ER] 1,500 mg PO HS 7 Days tab.er.24h 09/05/16 Omeprazole 20 mg PO DAILY 7 Days capsule. 09/05/16 Venlafaxine HCl ER [Effexor XR] 75 mg PO QAM 7 Days cap.er.24h 09/05/16 Nicotine 14Mg/24Hr Patch [Habitrol] 1 patch TRANSDERM DAILY #12 patch 09/11/17 Allergies Allergy/AdvReac Type Severity Reaction Status Date / Time No Known Allergies Allergy Verified 01/17/18 17:22 Review of Systems ROS Statement: Those systems with pertinent positive or pertinent negative responses have been documented in the HPI. ROS Other: All systems not noted in ROS Statement are negative. Past Medical History Past Medical History: Cancer, GERD/Reflux, Hyperlipidemia, Thyroid Disorder Additional Past Medical History / Comment(s): Anal CA, GI bypass 2014 with weight loss of 154 pounds vaginal cancer History of Any Multi-Drug Resistant Organisms: None Reported Additional Past Surgical History / Comment(s): Gastric bypass in 2014, anal cancer surgery, hysterectomy Past Anesthesia/Blood Transfusion Reactions: No Reported Reaction Past Psychological History: Anxiety, Bipolar Smoking Status: Current every day smoker Past Alcohol Use History: None Reported Past Drug Use History: None Reported - Past Family History Father Additional Family Medical History / Comment(s): Father is alive at age 83 with no major medical problems. Mother Additional Family Medical History / Comment(s): Mother at age 80 from brain cancer. Brother(s) Additional Family Medical History / Comment(s): Patient has 3 siblings. One brother from Hailey Gehrig's disease and to her life with no major medical problems. General Exam Limitations: no limitations Course Vital Signs 06/29/18 06/29/18 10:40 11:25 Temperature 98.2 F Pulse Rate 84 64 Respiratory 22 18 Rate Blood Pressure 140/83 142/92 O2 Sat by Pulse 97 96 Oximetry Medical Decision Making - Medical Decision Making Dictation was produced using [employer] dictation software. please excuse any grammatical, word or spelling errors. Chief Complaint: 50-year-old female past medical history of ovarian cancer, anal cancer, tobacco abuse presents with chest pain. History of Present Illness: Patient's 15-year-old female with multiple comorbidities. She reports that she is having some chest pain, dyspnea cough. Reports that the pain is a severe chest discomfort to her substernal area with radiation to the left shoulder. States that it's been having several nights where she would become also diaphoretic. Patient denies any productive cough. Patient is a current tobacco user. She does report having constitutional symptoms. Patient denies any history of blood clots. Denies any lower extremity symptoms. No history of coronary artery. Denies any exacerbating or mitigating factors of she does report that at night feels worse. The ROS documented in this emergency department record has been reviewed and confirmed by me. Those systems with pertinent positive or negative responses have been documented in the HPI. All other systems are other negative and/or noncontributory. PHYSICAL EXAM: General Impression: Alert and oriented x3, not in acute distress HEENT: Normocephalic atraumatic, extra-ocular movements intact, pupils equal and reactive to light bilaterally, mucous membranes moist. Cardiovascular: Heart regular rate and rhythm, S1&S2 audible, no murmurs, rubs or gallops Chest: Bilateral lung crackles Abdomen: Bowel sounds present, abdomen soft, non-tender, non-distended, no organomegaly Musculoskeletal: Pulses present and equal in all extremities, no peripheral edema Motor: Power 5/5 bilaterally, no focal deficits noted Neurological: CN II-XII grossly intact, no focal motor or sensory deficits noted Skin: Intact with no visualized rashes Psych: Normal affect and mood ED course: 58-year-old female with chief complaint of chest pain, shortness of breath. Vital signs upon arrival are within acceptable limits. EKGs benign. There is however S1Q3T3 pattern. Laboratory evaluation obtained showing no acute processes. Cardiac enzymes and d-dimer is negative. Chest x-ray unremarkable. Patient reevaluated with still some persistent symptoms. Patient however does appear comfortable. Patient be admitted for surgery troponins. Patient given 2 [place]. EKG interpretation: Ventricular rate 79, normal sinus rhythm, GA interval 156, QRS 80, QTC 417. No GA prolongation, no QTC prolongation, no ST or T-wave changes noted. Overall, this EKG is unremarkable - Lab Data Result diagrams: 06/29/18 10:55 06/29/18 10:55 Lab Results 06/29/18 06/29/18 06/29/18 Range/Units 10:55 10:55 10:55 WBC 6.8 (3.8-10.6) k/uL RBC 4.11 (3.80-5.40) m/uL Hgb 12.4 (11.4-16.0) gm/dL Hct 38.3 (34.0-46.0) % MCV 93.0 (80.0-100.0) fL MCH 30.2 (25.0-35.0) pg MCHC 32.4 (31.0-37.0) g/dL RDW 15.6 H (11.5-15.5) % Plt Count 266 (150-450) k/uL Neutrophils % 65 % Lymphocytes % 23 % Monocytes % 7 % Eosinophils % 3 % Basophils % 1 % Neutrophils # 4.4 (1.3-7.7) k/uL Lymphocytes # 1.6 (1.0-4.8) k/uL Monocytes # 0.5 (0-1.0) k/uL Eosinophils # 0.2 (0-0.7) k/uL Basophils # 0.0 (0-0.2) k/uL PT (9.0-12.0) sec INR (<1.2) APTT (22.0-30.0) sec D-Dimer (<0.60) mg/L FEU Sodium 137 (137-145) mmol/L Potassium 4.7 (3.5-5.1) mmol/L Chloride 107 (98-107) mmol/L Carbon Dioxide 23 (22-30) mmol/L Anion Gap 7 mmol/L BUN 12 (7-17) mg/dL Creatinine 0.80 (0.52-1.04) mg/dL Est GFR (CKD-EPI)AfAm >90 (>60 ml/min/1.73 sqM) Est GFR (CKD-EPI)NonAf 82 (>60 ml/min/1.73 sqM) Glucose 82 (74-99) mg/dL Calcium 9.7 (8.4-10.2) mg/dL Magnesium 1.9 (1.6-2.3) mg/dL Total Bilirubin 0.5 (0.2-1.3) mg/dL AST 32 (14-36) U/L ALT 23 (9-52) U/L Alkaline Phosphatase 52 (38-126) U/L Total Creatine Kinase 41 (30-135) U/L CK-MB (CK-2) 0.4 (0.0-2.4) ng/mL CK-MB (CK-2) Rel Index 1.0 Troponin I <0.012 (0.000-0.034) ng/mL Total Protein 6.1 L (6.3-8.2) g/dL Albumin 3.7 (3.5-5.0) g/dL 06/29/18 Range/Units 10:55 WBC (3.8-10.6) k/uL RBC (3.80-5.40) m/uL Hgb (11.4-16.0) gm/dL Hct (34.0-46.0) % MCV (80.0-100.0) fL MCH (25.0-35.0) pg MCHC (31.0-37.0) g/dL RDW (11.5-15.5) % Plt Count (150-450) k/uL Neutrophils % % Lymphocytes % % Monocytes % % Eosinophils % % Basophils % % Neutrophils # (1.3-7.7) k/uL Lymphocytes # (1.0-4.8) k/uL Monocytes # (0-1.0) k/uL Eosinophils # (0-0.7) k/uL Basophils # (0-0.2) k/uL PT 10.2 (9.0-12.0) sec INR 0.9 (<1.2) APTT 26.3 (22.0-30.0) sec D-Dimer 0.25 (<0.60) mg/L FEU Sodium (137-145) mmol/L Potassium (3.5-5.1) mmol/L Chloride (98-107) mmol/L Carbon Dioxide (22-30) mmol/L Anion Gap mmol/L BUN (7-17) mg/dL Creatinine (0.52-1.04) mg/dL Est GFR (CKD-EPI)AfAm (>60 ml/min/1.73 sqM) Est GFR (CKD-EPI)NonAf (>60 ml/min/1.73 sqM) Glucose (74-99) mg/dL Calcium (8.4-10.2) mg/dL Magnesium (1.6-2.3) mg/dL Total Bilirubin (0.2-1.3) mg/dL AST (14-36) U/L ALT (9-52) U/L Alkaline Phosphatase (38-126) U/L Total Creatine Kinase (30-135) U/L CK-MB (CK-2) (0.0-2.4) ng/mL CK-MB (CK-2) Rel Index Troponin I (0.000-0.034) ng/mL Total Protein (6.3-8.2) g/dL Albumin (3.5-5.0) g/dL Disposition Clinical Impression: Chest pain Disposition: ADMITTED IP TO THIS HOSP Condition: Fair Referrals: Bear Kraft MD [Primary Care Provider] - 1-2 days Decision Time: 12:07
[2018-06-29 11:17] LABS: Basophils % (A) 1 %; Eosinophils # (A) 0.2 k/uL (0-0.7); Eosinophils % (A) 3 %; HCT 38.3 % (34.0-46.0); HGB 12.4 gm/dL (11.4-16.0); Lymphocytes # (A) 1.6 k/uL (1.0-4.8); Lymphocytes % (A) 23 %; MCH 30.2 pg (25.0-35.0); MCHC 32.4 g/dL (31.0-37.0); Mean Platelet Volume 7.8; Monocytes # (A) 0.5 k/uL (0-1.0); Monocytes % (A) 7 %; Neutrophils # (A) 4.4 k/uL (1.3-7.7); Neutrophils % (A) 65 %; Platelet Count 266 k/uL (150-450); RBC 4.11 m/uL (3.80-5.40); RDW 15.6 % (11.5-15.5); WBC 6.8 k/uL (3.8-10.6)
[2018-06-29 11:30] LABS: D-Dimer 0.25 mg/L FEU (<0.60); INR 0.9 (<1.2); Partial Thromboplastin Time 26.3 sec (22.0-30.0); Prothrombin Time 10.2 sec (9.0-12.0)
[2018-06-29 11:31] LABS: Anion Gap 7 mmol/L; Blood Urea Nitrogen 12 mg/dL (7-17); Carbon Dioxide 23 mmol/L (22-30); Chloride 107 mmol/L (98-107); Glucose 82 mg/dL (74-99); Potassium 4.7 mmol/L (3.5-5.1); Sodium 137 mmol/L (137-145)
[2018-06-29 11:32] LABS: ALT 23 U/L (9-52); AST 32 U/L (14-36); Albumin 3.7 g/dL (3.5-5.0); Alkaline Phosphatase 52 U/L (38-126); Calcium 9.7 mg/dL (8.4-10.2); Magnesium 1.9 mg/dL (1.6-2.3); Total Bilirubin 0.5 mg/dL (0.2-1.3); Total Protein 6.1 g/dL (6.3-8.2)
[2018-06-29 11:42] LABS: Creatine Kinase 41 U/L (30-135)
--- NOTE | 2018-06-29 11:45 | XR ---
EXAMINATION TYPE: XR chest 2V DATE OF EXAM: 06/29/2018 COMPARISON: NONE HISTORY: Chest pain into left shoulder TECHNIQUE: Frontal and lateral views of the chest are obtained. FINDINGS: There is no focal air space opacity, pleural effusion, or pneumothorax seen. The cardiac silhouette size is upper limits of normal. The osseous structures are intact. Cholecystectomy clips are noted. IMPRESSION: No suspicious acute pulmonary process.
[2018-06-29 11:55] LABS: Creatine Kinase MB 0.4 ng/mL (0.0-2.4); Troponin I <0.012 ng/mL (0.000-0.034)
[2018-06-29] MEDS: NITROGLYCERIN SL TABS 0.4 MG TAB SUBLINGUAL PRN ×2 (13:38→19:52)
[2018-06-29] MEDS ORDERED: HYDROcodone/APAP 10-325MG 1 EACH TAB PO PRN (16:11)
--- NOTE | 2018-06-29 16:11 | P.HPIM ---
History of Present Illness H&P Date: 06/29/18 Chief Complaint: Chest pain 58-year-old female with PMH of anal and vaginal cancer, anxiety and bipolar disorder, and alcohol abuse presents to the ED for chest pain. Patient reports chest pain that has been ongoing for the past 4-5 days. Patient states that the pain was initially intermittent, occurring 2-3 times a day but has become more frequent over the last day. Patient reports that the pain lasts for 10-15 minutes at a time. Chest pain is midsternal and in the upper left shoulder. Pain is 10 out of 10 in severity. Patient reports the pain to be knife like and stabbing in nature. There is no radiation of pain. Patient reports deep inspiration aggravates her pain. Pain is alleviated with and [place] that she received in the ED. Patient also reports headaches, describes them as tension headaches, states that she has a lot of personal things going on in her life at this time. She also complains of cough, ongoing for many months which is productive of green sputum. Of note, patient smoked greater than one pack of cigarettes daily for a number of years. She denies any recent alcohol or illicit drug use. She denies any lower extremity edema, nausea, vomiting, fever, shortness of breath, palpitations, changes in urination or bowel habits. In the ED, CBC and BMP was unremarkable. Troponin was less than 0.012, EKG showing normal sinus rhythm. Patient is evaluated for chest pain, rule out acute coronary syndrome, cardiology is on consult. Review of Systems All systems: negative Past Medical History Past Medical History: Cancer, GERD/Reflux, Hyperlipidemia, Thyroid Disorder Additional Past Medical History / Comment(s): Anal cancer with surgeries, vaginal and ovarian cancer with surgeries, high cholesterol and thyroid corrected with wt loss. History of Any Multi-Drug Resistant Organisms: None Reported Past Surgical History: Hysterectomy Additional Past Surgical History / Comment(s): Gastric bypass in 2015, anal cancer surgeries, vaginal cancer with surgeries, colonoscopies and benign polypectomy, total hysterectomy for ovarian cancer. Past Anesthesia/Blood Transfusion Reactions: No Reported Reaction Smoking Status: Current every day smoker - Past Family History Father Additional Family Medical History / Comment(s): Father is alive at age 83 with no major medical problems. Mother Additional Family Medical History / Comment(s): Mother at age 80 from brain cancer. Brother(s) Additional Family Medical History / Comment(s): Patient has 3 siblings. One brother from Hailey Gehrig's disease and to her life with no major medical problems. Medications and Allergies Home Medications Medication Instructions Recorded Confirmed Type Divalproex ER [Depakote ER] 1,500 mg PO HS 7 Days tab.er.24h 09/05/16 06/29/18 Rx Omeprazole 20 mg PO DAILY 7 Days capsule. 09/05/16 06/29/18 Rx Venlafaxine HCl ER [Effexor XR] 75 mg PO QAM 7 Days cap.er.24h 09/05/16 Rx lamoTRIgine [LaMICtal] 75 mg PO DAILY 09/07/17 06/29/18 History Naltrexone HCl [Revia] 50 mg PO DAILY 06/29/18 06/29/18 History hydrOXYzine HCL [Atarax] 25 mg PO TID PRN 06/29/18 06/29/18 History traZODone HCL [Desyrel] 100 mg PO HS 06/29/18 06/29/18 History Allergies Allergy/AdvReac Type Severity Reaction Status Date / Time No Known Allergies Allergy Verified 01/17/18 17:22 Physical Exam Vitals: Vital Signs Temp Pulse Pulse Resp BP BP Pulse Ox 06/29/18 14:54 16 06/29/18 14:28 98.5 F 64 18 126/71 97 06/29/18 14:00 62 16 105/63 96 06/29/18 13:30 60 18 140/85 96 06/29/18 12:00 62 17 149/85 99 06/29/18 11:25 64 18 142/92 96 06/29/18 10:40 98.2 F 84 22 140/83 97 Intake and Output 06/29/18 06/29/18 06/29/18 06:59 14:59 22:59 Other: Voiding Method Toilet Weight 74.389 kg General: [non toxic], [no distress], [appears at stated age] Derm: [warm], [dry] Head: [atraumatic], [normocephalic], [symmetric] Eyes: [EOMI], [no lid lag], [anicteric sclera] Mouth: [no lip lesion], [mucus membranes moist] Cardiovascular: [S1S2 reg], [no murmur], [positive posterior tibial pulse bilateral], Lungs: [CTA bilateral], [no rhonchi, no rales] , [no accessory muscle use] Abdominal: [soft], [ nontender to palpation], [no guarding], [no appreciable organomegaly] Ext: [no gross muscle atrophy], [no edema], [no contractures] Neuro: [ CN II-XI grossly intact], [no focal neuro deficits] Psych: [Alert], [oriented], [appropriate affect] Results CBC & Chem 7: 06/29/18 10:55 06/29/18 10:55 Labs: Abnormal Lab Results - Last 24 Hours (Table) 06/29/18 06/29/18 Range/Units 10:55 10:55 RDW 15.6 H (11.5-15.5) % Total Protein 6.1 L (6.3-8.2) g/dL Thrombosis Risk Factor Assmnt - Choose All That Apply Any of the Below Risk Factors Present?: Yes Each Factor Represents 1 point: Age 41-60 years Other Risk Factors: Yes Each Risk Factor Represents 2 Points: Malignancy Other congenital or acquired thrombophilia - If yes, enter type in comment: No Thrombosis Risk Factor Assessment Total Risk Factor Score: 3 Thrombosis Risk Factor Assessment Level: Moderate Risk Assessment and Plan Assessment: Assessment and Plan 1. Chest pain 2. Anxiety and bipolar disorder 3. Alcohol abuse 1. Low concerns for acute coronary syndrome based on symptoms. Troponins less than 0.012, EKG shows normal sinus rhythm. Will trend 22 and EKGs to rule out ACS. Will follow echocardiogram. Telemetry monitoring. Pain management with [place] as needed. Follow cardiology recommendations. 2. Continue Depakote, Lamictal, trazodone, Effexor 3. Continue naltrexone. Suspecting some drug-seeking behavior. Patient is admitted for chest pain, rule out acute coronary syndrome. Cardiology is on consult.
[2018-06-29 17:09] LABS: Creatine Kinase 39 U/L (30-135)
[2018-06-29 17:20] LABS: Creatine Kinase MB 0.5 ng/mL (0.0-2.4); Troponin I <0.012 ng/mL (0.000-0.034)
[2018-06-29] MEDS ORDERED: KETOROLAC 30 MG/ML 1 ML VIAL IVP PRN (18:22)
[2018-06-29] MEDS: ONDANSETRON 4 MG TAB PO PRN (19:48)
[2018-06-29] MEDS ORDERED: traZODone HCL 100 MG TAB PO SCH (21:00)
[2018-06-29] MEDS ORDERED: DIVALPROEX ER 500 MG TAB.ER.24H PO SCH (21:00)
[2018-06-29] MEDS: NAPROXEN 250 MG TAB PO PRN (21:12)
[2018-06-29 22:41] LABS: Cholesterol 268 mg/dL (<200); HDL Cholesterol 89 mg/dL (40-60); LDL Cholesterol,Calculated 155 mg/dL (0-99); Triglycerides 120 mg/dL (<150)
[2018-06-29 23:00] LABS: Creatine Kinase 34 U/L (30-135)
[2018-06-29 23:13] LABS: Creatine Kinase MB 0.5 ng/mL (0.0-2.4); Troponin I <0.012 ng/mL (0.000-0.034)
[2018-06-30 08:20] VITALS: PULSE 58; RESP 16
[2018-06-30] MEDS: NITROGLYCERIN SL TABS 0.4 MG TAB SUBLINGUAL PRN (08:20)
[2018-06-30] MEDS: NAPROXEN 250 MG TAB PO PRN (08:25)
--- NOTE | 2018-06-30 08:56 | ECHOF ---
Referral Reason:Chest pain MEASUREMENTS -------- HEIGHT: 172.7 cm WEIGHT: 74.4 kg BP: 126/71 IVSd: 1.2 cm (0.6 - 1.1) LVIDd: 4.1 cm (3.9 - 5.3) LVPWd: 1.2 cm (0.6 - 1.1) IVSs: 1.4 cm LVIDs: 3.0 cm LVPWs: 1.4 cm RVIDd: 2.1 cm (< 3.3) LAESV Index (A-L): 18.74 ml/m Ao Diam: 3.7 cm (2.0 - 3.7) LA Diam: 3.4 cm (2.7 - 3.8) AV Cusp: 1.9 cm (1.5 - 2.6) EPSS: 0.7 cm MV E Eugene: 0.69 m/s MV DecT: 245 ms MV A [place]: 0.64 m/s MV E/A Ratio: 1.07 RAP: 5.00 mmHg RVSP: 22.26 mmHg MV EF SLOPE: 160.96 mm/s (70 - 150) MV EXCURSION: 2.45 cm (> 18.000) FINDINGS -------- Sinus rhythm. This was a technically adequate study. The left ventricular size is normal. There is mild concentric left ventricular hypertrophy. Overa ll left ventricular systolic function is low-normal with, an EF between 50 - 55 %. The right ventricle is normal in size and function. Normal LA size by volume 22+/-6 ml/m2. The right atrium is normal in size. There is mild aortic valve sclerosis. There is mild aortic regurgitation. There is no evidence of aortic stenosis. The mitral valve leaflets are mildly thickened. There is trace to mild mitral regurgitation. Trace tricuspid regurgitation present. Right ventricular systolic pressure is normal at < 35 mmHg. There is no evidence of pulmonary hypertension. The pulmonic valve was not well visualized. The aortic root size is normal. Normal inferior vena cava with normal inspiratory collapse consistent with estimated right atrial pre ssure of 5 mmHg. There is no pericardial effusion. CONCLUSIONS -------- 1. Sinus rhythm. 2. This was a technically adequate study. 3. The left ventricular size is normal. 4. There is mild concentric left ventricular hypertrophy. 5. Overall left ventricular systolic function is low-normal with, an EF between 50 - 55 %. 6. Normal LA size by volume 22+/-6 ml/m2. 7. There is mild aortic valve sclerosis. 8. There is mild aortic regurgitation. 9. The mitral valve leaflets are mildly thickened. 10. There is trace to mild mitral regurgitation. 11. Trace tricuspid regurgitation present. 12. Right ventricular systolic pressure is normal at < 35 mmHg. 13. There is no evidence of pulmonary hypertension. 14. The pulmonic valve was not well visualized. 15. The aortic root size is normal. 16. There is no pericardial effusion. WOOL SACKER: Juan Bush RDCS
[2018-06-30] MEDS ORDERED: lamoTRIgine 25 MG TAB PO SCH (09:00)
[2018-06-30] MEDS ORDERED: VENLAFAXINE HCL ER 75 MG CAP PO SCH (09:00)
[2018-06-30] MEDS ORDERED: ATORVASTATIN 20 MG TAB PO SCH (09:00)
[2018-06-30] MEDS ORDERED: ASPIRIN 325 MG TAB PO SCH (09:00)
[2018-06-30] MEDS ORDERED: NALTREXONE HCL 50 MG TAB PO SCH (09:00)
[2018-06-30 11:51] VITALS: BP 100/58
[2018-06-30 12:01] VITALS: TEMP 97.5
[2018-06-30] MEDS: ONDANSETRON 4 MG TAB PO PRN (12:40)
--- NOTE | 2018-06-30 13:08 | P.DS ---
Providers Date of admission: 06/29/18 12:03 Expected date of discharge: 06/30/18 Attending physician: Sue Dubois MD Consults: 06/29/18 15:52 Consult Physician Routine Consulting Provider: Luis Alberto Perez Consult Reason/Comments: cp Do you want consulting provider notified?: Yes Primary care physician: Bear Kraft MD Hospital Course: 58-year-old female with PMH of anal and vaginal cancer, anxiety and bipolar disorder, and alcohol abuse presents to the ED for chest pain. Patient reports chest pain that has been ongoing for the past 4-5 days. Patient states that the pain was initially intermittent, occurring 2-3 times a day but has become more frequent over the last day. Patient reports that the pain lasts for 10-15 minutes at a time. Chest pain is midsternal and in the upper left shoulder. Pain is 10 out of 10 in severity. Patient reports the pain to be knife like and stabbing in nature. There is no radiation of pain. Patient reports deep inspiration aggravates her pain. Pain is alleviated with and [place] that she received in the ED. Patient also reports headaches, describes them as tension headaches, states that she has a lot of personal things going on in her life at this time. She also complains of cough, ongoing for many months which is productive of green sputum. Of note, patient smoked greater than one pack of cigarettes daily for a number of years. She denies any recent alcohol or illicit drug use. She denies any lower extremity edema, nausea, vomiting, fever, shortness of breath, palpitations, changes in urination or bowel habits. In the ED, CBC and BMP was unremarkable. Troponin was less than 0.012, EKG showing normal sinus rhythm. Patient is evaluated for chest pain, rule out acute coronary syndrome, cardiology is on consult. Her troponin was less than 0.0123, EKG showing normal sinus rhythm. Lipid panel showed an elevated cholesterol with an LDL 155, total cholesterol 260. Echocardiogram was done which showed an EF of 50-55% with mild LVH. Acute coronary syndrome was ruled out. Patient was seen and examined. No acute events overnight. Patient reports improvement in her chest pain, only with deep inspiration. She denies any shortness of breath or palpitations. Patient is looking for to going home. General: [non toxic], [no distress], [appears at stated age] Derm: [warm], [dry] Head: [atraumatic], [normocephalic], [symmetric] Eyes: [EOMI], [no lid lag], [anicteric sclera] Mouth: [no lip lesion], [mucus membranes moist] Cardiovascular: [S1S2 reg], [no murmur], [positive posterior tibial pulse bilateral], Lungs: [CTA bilateral], [no rhonchi, no rales] , [no accessory muscle use] Abdominal: [soft], [ nontender to palpation], [no guarding], [no appreciable organomegaly] Ext: [no gross muscle atrophy], [no edema], [no contractures] Neuro: [ CN II-XI grossly intact], [no focal neuro deficits] Psych: [Alert], [oriented], [appropriate affect] Assessment and Plan 1. Chest pain 2. Anxiety and bipolar disorder 3. Alcohol abuse 1. Low concerns for acute coronary syndrome based on symptoms. Troponins less than 0.0123, EKG shows normal sinus rhythm. ACS has been ruled out. Echocardiogram shows EF of 50-55% with mild LVH. Telemetry monitoring. Pain management with [place] as needed. Follow cardiology recommendations. 2. Continue Depakote, Lamictal, trazodone, Effexor 3. Continue naltrexone. Suspecting some drug-seeking behavior. Discharge today. Follow-up with Dr. Okeefe for possible outpatient cardiac stress test in the future. Pertinent Studies: chest x-ray Echocardiogram Patient Condition at Discharge: Fair Plan - Discharge Summary Discharge Rx Participant: No New Discharge Prescriptions: New Aspirin 325 mg PO DAILY #30 tab Atorvastatin [Lipitor] 20 mg PO DAILY #30 tab HYDROcodone/APAP 7.5-325MG [[place] 7.5-325] 1 tab PO Q6HR PRN 3 Days #12 tab PRN Reason: Pain Continue Divalproex ER [Depakote ER] 1,500 mg PO HS 7 Days tab.er.24h Omeprazole 20 mg PO DAILY 7 Days capsule. Venlafaxine HCl ER [Effexor XR] 75 mg PO QAM 7 Days cap.er.24h lamoTRIgine [LaMICtal] 75 mg PO DAILY traZODone HCL [Desyrel] 100 mg PO HS hydrOXYzine HCL [Atarax] 25 mg PO TID PRN PRN Reason: Itching Naltrexone HCl [Revia] 50 mg PO DAILY Discharge Medication List Divalproex ER [Depakote ER] 1,500 mg PO HS 7 Days tab.er.24h 09/05/16 [Rx] Omeprazole 20 mg PO DAILY 7 Days capsule. 09/05/16 [Rx] Venlafaxine HCl ER [Effexor XR] 75 mg PO QAM 7 Days cap.er.24h 09/05/16 [Rx] lamoTRIgine [LaMICtal] 75 mg PO DAILY 09/07/17 [History] Naltrexone HCl [Revia] 50 mg PO DAILY 06/29/18 [History] hydrOXYzine HCL [Atarax] 25 mg PO TID PRN 06/29/18 [History] traZODone HCL [Desyrel] 100 mg PO HS 06/29/18 [History] Aspirin 325 mg PO DAILY #30 tab 06/30/18 [Rx] Atorvastatin [Lipitor] 20 mg PO DAILY #30 tab 06/30/18 [Rx] HYDROcodone/APAP 7.5-325MG [[place] 7.5-325] 1 tab PO Q6HR PRN 3 Days #12 tab 07/17 [Rx] Follow up Appointment(s)/Referral(s): Baer Kraft MD [Primary Care Provider] - 1-2 days Beto Okeefe MD [STAFF PHYSICIAN] - 1 Week Discharge Disposition: HOME SELF-CARE
--- NOTE | 2018-06-30 13:22 | CONS ---
CONSULTATION Mrs. Gar is a 58-year-old female with a history of smoking, who presented with multiple symptoms. Her symptoms started with nausea and vomiting and diaphoresis. Subsequently, she was having some chest discomfort, stepping, lasting for few seconds, as well as discomfort in the left shoulder of the same duration with numbness in the left arm. Because of that, she came into the emergency room. She was having some palpitation and dyspnea. The patient has no prior history of cardiac disease. She is reasonably active physically. She is a recovered alcoholic and has stopped drinking according to her 2-1/2 years ago. She has no clear PND, orthopnea. No peripheral edema. No syncope. Her coronary risk factors are remarkable for the history of chronic tobacco use. She is a nondiabetic. No documented hyperlipidemia or hypertension. MEDICATION: At home include trazodone, Lamictal, Atarax, Effexor, Depakote and ReVia. REVIEW OF SYSTEMS: RESPIRATORY SYSTEM: She had dyspnea on exertion and cough. GI SYSTEM: She had the nausea and vomiting with GI bleeding. SYSTEM: No dysuria or hematuria. NERVOUS SYSTEM: No history of stroke or seizure. She has a history of anxiety and bipolar disorder. PHYSICAL EXAMINATION: She is a 58-year-old female, alert, oriented, in no apparent distress. Blood pressure 111/70 with a heart rate in the 60s. HEAD: Normocephalic. EYES: Sclerae anicteric. NECK: Good upstroke, no jugular venous distention, clear to auscultation. HEART: Regular rate and rhythm, S1, S2. No S3. No S4. No murmur or rub. ABDOMEN: Soft, nontender, positive bowel sounds, no organomegaly. EXTREMITIES: No edema, intact pulses. LAB DATA: Revealed troponin less than 0.012 for 3 samples. Cholesterol 268, LDL 155, potassium 4.7, hemoglobin 12 and 0.8, hemoglobin of 12.4. EKG revealed a sinus mechanism, normal axis and intervals with no with nonspecific ST-T wave changes. Chest x-ray revealed no acute infiltrate. IMPRESSION: 1. Chest discomfort has atypical features for ischemic heart disease, probably noncardiac. 2. History of smoking. 3. Hyperlipidemia, now treated. RECOMMENDATION: I will review the results of her echocardiogram. Increase her level activity. If she is stable, expect she should be able to be discharged home today and follow up as an outpatient psych to be ever able to be discharged home today, but I would recommend to obtain a stress echocardiogram as an outpatient. Thank you for this consult. Will follow with you. ROSSI / TRINIDAD: [id number] /
== END 2018-06-30 14:30 | disposition home or self-care (01) ==
LOC: EC 10:37 → 1SOBS 12:03
PROVIDERS: ADMIT Family Medicine; ATTEND Family Medicine
DX: R07.89 Other chest pain (principal); R06.00 Dyspnea, unspecified; R20.0 Anesthesia of skin; R61 Generalized hyperhidrosis; R05 Cough; Z98.84 Bariatric surgery status; E78.5 Hyperlipidemia, unspecified; E78.00 Pure hypercholesterolemia, unspecified; F10.21 Alcohol dependence, in remission; K21.9 Gastro-esophageal reflux disease without esophagitis; F41.9 Anxiety disorder, unspecified; F31.9 Bipolar disorder, unspecified; Z85.048 Personal history of other malignant neoplasm of rectum, rectosigmoid junction, and anus; Z85.44 Personal history of malignant neoplasm of other female genital organs; F17.210 Nicotine dependence, cigarettes, uncomplicated; Z90.710 Acquired absence of both cervix and uterus; Z82.0 Family history of epilepsy and other diseases of the nervous system; Z80.8 Family history of malignant neoplasm of other organs or systems; Z79.899 Other long term (current) drug therapy; R51 Headache
CPT/HCPCS: 96374; 99285; 36415; 94760; 93005 ×2; 93306; 85379; 80061; 80053; 82550; 82553; 83735; 84484; 85025; 85610; 85730; 71046; G0378 ×2; J1885

== ENCOUNTER 2018-08-22 12:25 | Day surgery (SDC) | payer MEDICARE ==
[2018-08-16 11:10] VITALS: BMI 23.4
[~2018-08-22 12:25] MED LIST: ALPRAZolam 0.25 MG TAB PO PRN; ALPRAZolam 0.5 MG TAB PO PRN; ASPIRIN 325 MG TAB PO STA; ATORVASTATIN 80 MG TAB PO STA; NITROGLYCERIN SL TABS 0.4 MG TAB SUBLINGUAL PRN; SODIUM CHLORIDE 0.9% 1,000 ML in EMPTY BAG 1 BAG IV ONE
[2018-08-22] MEDS ORDERED: fentaNYL (PF) 50 MCG/ML 2 ML AMP ONE (14:02)
[2018-08-22] MEDS ORDERED: HEPARIN SODIUM 1,000 UN/ML (10ML VL) ONE (14:02)
[2018-08-22] MEDS ORDERED: VERAPAMIL 2.5 MG/ML 2 ML AMP ONE (14:02)
[2018-08-22] MEDS ORDERED: LIDOCAINE 1% INJ 10MG/ML (20 ML MDV) ONE (14:02)
[2018-08-22] MEDS ORDERED: fentaNYL (PF) 50 MCG/ML 2 ML AMP IV ONE (14:17)
[2018-08-22] MEDS ORDERED: LIDOCAINE 1% INJ 10MG/ML (20 ML MDV) SQ ONE (14:20)
[2018-08-22] MEDS ORDERED: MIDAZOLAM (PF) 2 MG/2 ML VIAL IV ONE (14:21)
[2018-08-22] MEDS ORDERED: VERAPAMIL SYRINGE (5 MG/10 ML) INTRAARTER ONE (14:21)
[2018-08-22] MEDS ORDERED: HEPARIN SODIUM 1,000 UN/ML (10ML VL) IV ONE (14:23)
[2018-08-22] MEDS ORDERED: IOPAMIDOL-370 125ML BTL INJ ONE (14:31)
[2018-08-22] MEDS ORDERED: RX INFO: IV CONTRAST WAS GIVEN 1 EACH MISC MISCELLANE PRN (14:46)
[2018-08-22] MEDS ORDERED: SODIUM CHLORIDE 0.9% 1,000 ML IV SCH (15:00)
--- NOTE | 2018-08-22 16:15 | CC ---
CARDIAC CATHETERIZATION REPORT Mrs. Gar is a 58-year-old female with history of smoking which she stopped a month ago, history of hyperlipidemia, who presented to the hospital with symptoms of chest discomfort, at times exertional in pattern. She had no evidence of EKG or enzymatic changes. She underwent stress test that showed no evidence of inducible ischemia. Following her discharge, she continued having chest discomfort at times exertional and improving with nitroglycerin. In view of that, recommendation made regarding cardiac catheterization. The procedures, as well as risks and complications were discussed with the patient who is in full understanding and agreement. PROCEDURE: Patient was brought to labor and employment paralegal in a fasting state after receiving fentanyl and Benadryl and achieving moderate conscious sedated state. Using Xylocaine anesthesia and Seldinger technique a 6-[place]onegas[place] sheath was introduced in the right radial artery. Selective right and left coronary angiography was performed using 6-[place]gas[place] 4 bend right and left [place] catheter. Multiple views of the right coronary artery including hemiaxial views were obtained. Following that, catheter and sheath were removed. Hemostasis was obtained with deployment of a TR band. There was no immediate complication. Patient was returned to his room in stable condition. FINDINGS: FLUOROSCOPY: There was calcification involving the ostium of the right coronary artery as well as the proximal left anterior descending artery. SELECTIVE CORONARY ANGIOGRAPHY: LEFT MAIN: This is a large-sized vessel trifurcating into left circumflex, left anterior descending artery and ramus intermedius. Left main coronary artery has no evidence of high-grade stenosis. LEFT ANTERIOR DESCENDING ARTERY: This is a large-sized vessel reaching toward the apex, tapers down the distal third, giving rise to a small diagonal branch. The left anterior descending artery as well as branches have no evidence of obstructive coronary artery disease. Mild calcification is noted in the proximal segment. LEFT CIRCUMFLEX: This is a small nondominant vessel giving rise to 2 obtuse marginal branches. The left circumflex as well as branches have no evidence of obstructive coronary artery disease. RAMUS INTERMEDIUS: This is a large-sized vessel reaching to the apical lateral wall, has no evidence of high-grade stenosis. RIGHT CORONARY ARTERY : This is a large dominant vessel bifurcating distally into PDA and posterolateral segment branches. The ostium of the right coronary artery is calcified. The right coronary artery has no evidence of high-grade stenosis. LEFT VENTRICULOGRAM: Left ventriculogram was performed in 30 degree GONSALES view and revealed normal left ventricular size and systolic function. Ejection fraction 60%. There was no significant mitral regurgitation. HEMODYNAMICS: There was no gradient across the aortic valve. The left ventricle end-diastolic pressure was 12-16 mmHg. CONCLUSION: 1. Calcification involving the ostium of the right coronary artery and the proximal LAD. 2. No evidence of significant obstructive disease. 3. Normal left ventricular size and systolic function. RECOMMENDATIONS: In view of findings and anatomy, I recommend continued medical therapy with aggressive coronary risk factor modifications that have been initiated. Those findings and recommendations were discussed with the patient and her family and they are in full understanding and agreement. DURATION OF PROCEDURE: 14 minutes. MMODL / IJN: [id number] /
[2018-08-22] MEDS ORDERED: ACETAMINOPHEN TAB 325 MG TAB PO STA (18:50)
[2018-08-22 19:00] VITALS: BP 128/84; PULSE 67; RESP 15; TEMP 98.2
[2018-08-22] MEDS ORDERED: DIVALPROEX ER 500 MG TAB.ER.24H PO SCH (21:00)
[2018-08-22] MEDS ORDERED: lamoTRIgine 25 MG TAB PO SCH (21:00)
[2018-08-22] MEDS ORDERED: traZODone HCL 100 MG TAB PO SCH (21:00)
[2018-08-23] MEDS ORDERED: PANTOPRAZOLE 40 MG TABLET PO SCH (07:30)
[2018-08-23] MEDS ORDERED: ATORVASTATIN 20 MG TAB PO SCH (09:00)
[2018-08-23] MEDS ORDERED: VENLAFAXINE HCL ER 75 MG CAP PO SCH (09:00)
[2018-08-23] MEDS ORDERED: ASPIRIN 81 MG PO SCH (09:00)
[2018-08-23] MEDS ORDERED: lamoTRIgine 25 MG TAB PO SCH (09:00)
[2018-08-23] MEDS ORDERED: NALTREXONE HCL 50 MG TAB PO SCH (09:00)
[2018-08-23] MEDS ORDERED: ISOSORBIDE MONONITRATE ER 30 MG TAB.ER.24H PO SCH (09:00)
== END 2018-08-22 19:15 | disposition home or self-care (01) ==
LOC: CATHCVL 12:25 → 1SOBS 14:57 → CATHCVL 19:15
PROVIDERS: ATTEND Internal Medicine Interventional Cardiology
DX: I25.110 Atherosclerotic heart disease of native coronary artery with unstable angina pectoris (principal); E78.2 Mixed hyperlipidemia; Z79.82 Long term (current) use of aspirin; Z79.899 Other long term (current) drug therapy; Z87.891 Personal history of nicotine dependence; Z82.49 Family history of ischemic heart disease and other diseases of the circulatory system
CPT/HCPCS: 93458; C1894; C1769; J2001; J3010; J1644; Q9967; J2250